=== PATIENT | female | born 1975 | race Caucasian/White ===

== ENCOUNTER 2018-01-23 20:34 | Emergency (ER) | payer OTHER, SELFPAY ==
[2018-01-23] MEDS ORDERED: DEXAMETHASONE 10 MG/ML VIAL ONE (20:55)
[2018-01-23] MEDS ORDERED: DIPHENHYDRAMINE 25 MG TAB/CAP ONE (20:56)
[2018-01-23] MEDS ORDERED: EPINEPHRINE/PF 1 MG/ML AMP ONE (20:56)
--- NOTE | 2018-01-23 22:07 | ER ---
Nurse's Notes [facility] Name: Yolie Hu Age: 42 yrs Sex: Female : 1975 Arrival Date: 01/23/2018 Time: 20:38 Bed 5 Private MD: Mohit Wheatley Diagnosis: Acute Allergic Reaction Presentation: 01/23 20:43 Presenting complaint: Patient states: I've been having an allergic reaction to tl2 something since Saturday. I've been itching all over. I got a steroid shot on Saturday and it improved but came back the next day. I saw Dr. Holcomb and he was going to order tests to see if I'm allergic to one of my medications but I haven't had that done yet. Today I'm itching again and I feel like I have a lump in my throat and it's hard to breathe. Transition of care: patient was not received from another setting of care. Onset: The symptoms/episode began/occurred 4 day(s) ago. Anaphylaxis evaluation, no signs or symptoms of anaphylaxis were noted. Onset of symptoms was January 19, 2018. Risk Assessment: Do you want to hurt yourself or someone else? Patient reports no desire to harm self or others. Initial Sepsis Screen: Does the patient meet any 2 criteria? No. Patient's initial sepsis screen is negative. Does the patient have a suspected source of infection? No. Patient's initial sepsis screen is negative. Care prior to arrival: None. 20:43 Method Of Arrival: Ambulatory tl2 20:43 Acuity: CANDIDA 3 tl2 Triage Assessment: 20:45 General: Appears in no apparent distress. uncomfortable, Behavior is cooperative, tl2 appropriate for age, anxious. Pain: Denies pain. Respiratory: Airway is patent Respiratory effort is even, unlabored, Respiratory pattern is regular, symmetrical. Derm: Rash noted that is itchy, urticaria, on face. LMSW: 22:16 LMP N/A - Irregular menses jd3 Historical: - Allergies: 20:45 Iodine; tl2 20:45 Nitrofurantoin; tl2 - Home Meds: 20:45 Dexilant 60 mg Oral CpDB 1 cap once daily [Active]; Keppra 1500mg Oral tab 1 tab 2 tl2 times per day [Active]; Topamax 200 mg Oral tab 2 times per day [Active]; Xanax 0.5 mg Oral tab 1 tab as needed [Active]; - PMHx: 20:45 GERD; insomnia; Seizures; tl2 - PSHx: 20:45 Cholecystectomy; ; tl2 - Immunization history:: Adult Immunizations up to date. - Social history:: Smoking status: Patient/guardian denies using tobacco. - Ebola Screening: : No symptoms or risks identified at this time. - Family history:: not pertinent. - Hospitalizations: : No recent hospitalization is reported. Screenin:46 Abuse screen: Denies threats or abuse. Nutritional screening: No deficits noted. jd3 Tuberculosis screening: No symptoms or risk factors identified. Fall Risk Ambulatory Aid- None/Bed Rest/Nurse Assist (0 pts). Gait- Normal/Bed Rest/Wheelchair (0 pts) Mental Status- Oriented to own ability (0 pts). Total Metz Fall Scale indicates No Risk (0-24 pts). Assessment: 20:44 General: Appears uncomfortable, Behavior is cooperative, anxious. Pain: Denies pain. jd3 Neuro: Level of Consciousness is awake, alert, obeys commands, Oriented to person, place, time, situation. Cardiovascular: Heart tones S1 S2 present Capillary refill < 3 seconds Patient's skin is warm and dry. Respiratory: Reports shortness of breath pt states, "it feels like my there is something stuck in my throat." Airway is patent Respiratory effort is even, unlabored, Respiratory pattern is regular, symmetrical, GI: Abdomen is round Bowel sounds present X 4 quads. Abd is soft and non tender X 4 quads. : No signs and/or symptoms were reported regarding the genitourinary system. EENT: No signs and/or symptoms were reported regarding the EENT system. Derm: Skin is intact, Skin is dry, Skin is normal, Skin temperature is warm Rash noted that is itchy, red. Musculoskeletal: Circulation, motion, and sensation intact. Range of motion: intact in all extremities. 22:17 Reassessment: Patient appears in no apparent distress at this time. Patient and/or jd3 family updated on plan of care and expected duration. Pain level reassessed. Patient is alert, oriented x 3, equal unlabored respirations, skin warm/dry/pink. pt reported understanding of discharge instructions, even and steady gait upon discharge. Patient states feeling better. Vital Signs: 20:45 BP 113 / 64; Pulse 95; Resp 22; Temp 98.6(O); Pulse Ox 97% on R/A; Weight 74.84 kg; tl2 Height 5 ft. 5 in. (165.10 cm); Pain 0/10; 21:08 BP 92 / 66; Pulse 76; Resp 18; Pulse Ox 99% on R/A; mt 21:49 BP 91 / 58; Pulse 76; Resp 20; Pulse Ox 98% on R/A; mt 20:45 Body Mass Index 27.46 (74.84 kg, 165.10 cm) tl2 ED Course: 20:38 Patient arrived in ED. ds1 20:38 Mohit Wheatley MD is Private Physician. ds1 20:40 Luis M Bowden MD is Attending Physician. pa 20:44 Moe Barragan RN is Primary Nurse. jd3 20:45 Triage completed. tl2 20:46 Patient has correct armband on for positive identification. Bed in low position. Call jd3 light in reach. Side rails up X 1. 20:46 Arm band placed on. jd3 22:16 No provider procedures requiring assistance completed. Patient did not have IV access jd3 during this emergency room visit. Administered Medications: 21:02 Drug: Decadron 10 mg Route: IM; Site: right deltoid; jd3 22:18 Follow up: Response: No adverse reaction jd3 21:02 Drug: EPINEPHrine 1mg/mL 1:1,000 0.3 ml Route: Sub-Q; Site: abdomen; jd3 22:18 Follow up: Response: No adverse reaction jd3 21:02 Drug: Benadryl 25 mg Route: PO; jd3 22:18 Follow up: Response: No adverse reaction jd3 Outcome: 22:06 Discharge ordered by . wa 22:16 Discharged to home ambulatory. jd3 22:16 Condition: stable 22:16 Discharge instructions given to patient, Instructed on discharge instructions, follow up and referral plans. medication usage, Demonstrated understanding of instructions, follow-up care, medications, Prescriptions given X 1. 22:19 Patient left the ED. jd3 Signatures: Tonya Dominguez ds1 Samia Flannery RN RN tl2 Alexandra Malave ri Luis M Bowden MD MD wa Davies, Jonathon, RN RN jd3
--- NOTE | 2018-01-23 22:07 | EDPHYS ---
Physician Documentation [facility] Name: Yolie Hu Age: 42 yrs Sex: Female : 1975 Arrival Date: 01/23/2018 Time: 20:38 Bed 5 Private MD: Mohit Wheatley ED Physician Luis M Bowden HPI: 01/23 22:38 This 42 yrs old Female presents to ER via Ambulatory with complaints of wa Allergic Reaction, Breathing Difficulty. 22:38 The patient presents with itching, rash, that is diffuse, sensation of swelling in wa throat. Onset: The symptoms/episode began/occurred 4 day(s) ago. Associated signs and symptoms: Pertinent positives: hives, rash, Pertinent negatives: headache, Light headed swelling, Syncope vomiting. Possible causes: new cat in the home otherwise unsure of new insult. At home the patient or guardian has treated the symptoms with Benadryl, steroids. Severity of symptoms: At their worst the symptoms were moderate in the emergency department the symptoms are worse. h/o allergy to multiple insults. The patient has not recently seen a physician. 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 - Social history:: Smoking status: Patient/guardian denies using tobacco. - Ebola Screening: : No symptoms or risks identified at this time. - Family history:: not pertinent. - Hospitalizations: : No recent hospitalization is reported. ROS: 22:40 Constitutional: Negative for fever, chills, and weight loss, Eyes: Negative for injury, wa pain, redness, and discharge, ENT: Negative for injury, pain, and discharge, Neck: Negative for injury, pain, and swelling, Cardiovascular: Negative for chest pain, palpitations, and edema, Respiratory: Negative for shortness of breath, cough, wheezing, and pleuritic chest pain, Abdomen/GI: Negative for abdominal pain, nausea, vomiting, diarrhea, and constipation, Back: Negative for injury and pain, : Negative for injury, bleeding, discharge, and swelling, MS/Extremity: Negative for injury and deformity, Neuro: Negative for headache, weakness, numbness, tingling, and seizure. 22:40 Skin: Positive for rash, diffusely. 22:40 All other systems are negative. Exam: 22:41 Constitutional: This is a well developed, well nourished patient who is awake, alert, wa and in no acute distress. Head/Face: Normocephalic, atraumatic. Eyes: Pupils equal round and reactive to light, extra-ocular motions intact. Lids and lashes normal. Conjunctiva and sclera are non-icteric and not injected. Cornea within normal limits. Periorbital areas with no swelling, redness, or edema. ENT: Nares patent. No nasal discharge, no septal abnormalities noted. Tympanic membranes are normal and external auditory canals are clear. Oropharynx with no redness, swelling, or masses, exudates, or evidence of obstruction, uvula midline. Mucous membranes moist. Neck: Trachea midline, no thyromegaly or masses palpated, and no cervical lymphadenopathy. Supple, full range of motion without nuchal rigidity, or vertebral point tenderness. No Meningismus. Chest/axilla: Normal chest wall appearance and motion. Nontender with no deformity. No lesions are appreciated. Cardiovascular: Regular rate and rhythm with a normal S1 and S2. No gallops, murmurs, or rubs. Normal PMI, no JVD. No pulse deficits. Abdomen/GI: Soft, non-tender, with normal bowel sounds. No distension or tympany. No guarding or rebound. No evidence of tenderness throughout. Back: No spinal tenderness. No costovertebral tenderness. Full range of motion. MS/ Extremity: Pulses equal, no cyanosis. Neurovascular intact. Full, normal range of motion. Neuro: Awake and alert, GCS 15, oriented to person, place, time, and situation. Cranial nerves II-XII grossly intact. Motor strength 5/5 in all extremities. Sensory grossly intact. Cerebellar exam normal. Normal gait. Psych: Awake, alert, with orientation to person, place and time. Behavior, mood, and affect are within normal limits. 22:41 Respiratory: the patient does not display signs of respiratory distress, Respirations: normal, Breath sounds: are clear throughout, Respiratory rate: normal 22:41 Skin: and is diffusely located. Vital Signs: 20:45 BP 113 / 64; Pulse 95; Resp 22; Temp 98.6(O); Pulse Ox 97% on R/A; Weight 74.84 kg; tl2 Height 5 ft. 5 in. (165.10 cm); Pain 0/10; 21:08 BP 92 / 66; Pulse 76; Resp 18; Pulse Ox 99% on R/A; mt 21:49 BP 91 / 58; Pulse 76; Resp 20; Pulse Ox 98% on R/A; mt 20:45 Body Mass Index 27.46 (74.84 kg, 165.10 cm) tl2 MDM: 20:40 Patient medically screened. me 22:42 Differential diagnosis: anaphylaxis, angioedema, urticaria. Data reviewed: vital signs, me nurses notes. Response to treatment: the patient's symptoms have markedly improved after treatment. Administered Medications: 21:02 Drug: Decadron 10 mg Route: IM; Site: right deltoid; jd3 22:18 Follow up: Response: No adverse reaction jd3 21:02 Drug: EPINEPHrine 1mg/mL 1:1,000 0.3 ml Route: Sub-Q; Site: abdomen; jd3 22:18 Follow up: Response: No adverse reaction jd3 21:02 Drug: Benadryl 25 mg Route: PO; jd3 22:18 Follow up: Response: No adverse reaction jd3 Disposition: 01/23/18 22:06 Discharged to Home. Impression: Acute Allergic Reaction. - Condition is Stable. - Discharge Instructions: Allergies, [id number]. - Prescriptions for Prednisone 20 mg Oral Tablet - take 2 tablet by ORAL route once daily for 5 days; 10 tablet. EpiPen 0.3 mg Injection auto- injector - inject 1 pen by INTRAMUSCULAR route one time Inject into the outer portion of the thigh, through clothing if necessary. Indicated in the emergency treatment of allergic reactions; 1 box. - Medication Reconciliation Form, Thank You Letter, Antibiotic Education, Prescription Opioid Use, Work release form form. - Follow up: Private Physician; When: 48 Hours; Reason: Re-evaluation by your physician. - Problem is new. - Symptoms have improved. - Notes: take the medication as prescribed. you may take benadryl for itching. Move the cat out of [facility] home for a while to see if that may be the source of your allergy. Signatures: Samia Flannery RN RN tl2 Luis M Bowden MD MD wa Davies, Jonathon, RN RN jd3 Corrections: (The following items were deleted from the chart) 22:19 22:06 01/23/2018 22:06 Discharged to Home. Impression: Acute Allergic Reaction. jd3 Condition is Stable. Forms are Medication Reconciliation Form, Thank You Letter, Antibiotic Education, Prescription Opioid Use. Follow up: Private Physician; When: 48 Hours; Reason: Re-evaluation by your physician. Problem is new. Symptoms have improved. wa
== END 2018-01-23 22:19 | disposition home or self-care (01) ==
LOC: ER 20:34
DX: T78.40XA Allergy, unspecified, initial encounter (principal); X58.XXXA Exposure to other specified factors, initial encounter; K21.9 Gastro-esophageal reflux disease without esophagitis; G40.909 Epilepsy, unspecified, not intractable, without status epilepticus
CPT/HCPCS: 96372; 99283; J0171; J1100

== ENCOUNTER 2019-01-20 05:53 | Emergency (ER) | payer SELFPAY ==
[2019-01-20] MEDS ORDERED: KETOROLAC 30 MG/ML INJ ONE (06:44)
[2019-01-20 06:48] LABS: Absolute Lymphocytes (CBC) 1.2 K/uL (0.7-4.9); Basophils % 0.3 % (0-1.3); Eosinophils % 0.1 % (0-4.4); Lymphocytes % 8.6 % (15.3-44.8); MPV 9.2 fL (7.6-11.3); Monocytes % 4.6 % (3.3-12.3); RBC Red Blood Cell Count 3.87 M/uL (3.86-4.86)
[2019-01-20 06:49] LABS: Protime INR 0.94
[2019-01-20 07:15] LABS: Urine White Blood Cell Casts OK
[2019-01-20] MEDS ORDERED: FENTANYL CITR 100 MCG/2 ML ONE ×2 (07:15→09:12)
[2019-01-20 07:16] LABS: ALT/SGPT 40 U/L (12-78); AST/SGOT 17 U/L (15-37); Albumin 3.8 g/dL (3.4-5.0); Alkaline Phosphatase 91 U/L (45-117); BUN Blood Urea Nitrogen 11 mg/dL (7-18); Bicarbonate 19 mmol/L (21-32); Bilirubin Direct 0.1 mg/dL (0-0.2); Bilirubin Total 0.2 mg/dL (0.2-1.0); Blood Morphology Comment NOT SEEN (NOT SEEN); Glucose Level 111 mg/dL (74-106); Magnesium 2.1 mg/dL (1.8-2.4); NT PRO-BNP 120 pg/mL (<125); Platelet Estimate ADEQ; Protein, Total 6.9 g/dL (6.4-8.2); Sodium Level 141 mmol/L (136-145); Troponin (Emerg Dept Use Only) 0.04 ng/mL (0.0-0.045)
[2019-01-20 07:18] LABS: Potassium 2.8 mmol/L (3.5-5.1)
[2019-01-20] MEDS ORDERED: PROMETHAZINE 25 MG/ML VIAL ONE ×2 (07:24→09:11)
[2019-01-20] MEDS ORDERED: NS KCL 20MEQ 1,000 ML IV ONE (07:38)
--- NOTE | 2019-01-20 08:04 | RAD REPORT ---
EXAM DESCRIPTION: RAD - Chest Single View - 01/20/2019 6:40 am CLINICAL HISTORY: Shortness of breath, left-sided back pain, asthma history COMPARISON: November 2016 TECHNIQUE: AP portable chest image was obtained 0636 hours . FINDINGS: Lung volumes are reduced particularly on the left. No focal lung parenchymal process on th e right. Stranding is present in the left lung base. Given the low lung volumes, this is most likely atelectasis. Minimal left base infiltrate not excluded. Heart and vasculature are normal. No measurable pleural effusion and no pneumothorax. No acute bony abnormality seen. No acute aortic findings suspected. IMPRESSION: Early pneumonia versus atelectasis left lung base.
[2019-01-20] MEDS ORDERED: CEFTRIAXONE/SWI 1gm 1 GM/10 ML SYR ONE (08:58)
[2019-01-20] MEDS ORDERED: AZITHROMYCIN IV 500 MG in NA CHLORIDE 0.9% 250 ML IVPB ONE (09:00)
[2019-01-20] MEDS ORDERED: ONDANSETRON 4 MG/2 ML VIAL ONE (09:23)
--- NOTE | 2019-01-20 10:40 | ER ---
Nurse's Notes [facility] Name: Yolie Hu Age: 43 yrs Sex: Female : 1975 Arrival Date: 01/20/2019 Time: 05:55 Bed 13 Private MD: Diagnosis: Pleurisy;Pneumonia due to other specified bacteria Presentation: 01/20 06:21 Presenting complaint: Patient states: Shortness of breath related to pain on breathing; lp1 States sudden onset at 2300 tonight radiating to left side of upper back; States seen at [facility] with no relief; States "I feel like I'm going to pass out". Transition of care: patient was not received from another setting of care. Onset of symptoms was January 19, 2019 at 23:00. Risk Assessment: Do you want to hurt yourself or someone else? Patient reports no desire to harm self or others. Initial Sepsis Screen:. Care prior to arrival: None. 06:21 Method Of Arrival: Wheelchair lp1 06:21 Acuity: CANDIDA 3 lp1 06:30 Initial Sepsis Screen: Does the patient meet any 2 criteria? RR > 20 per min. HR > 90 lp1 bpm. Does the patient have a suspected source of infection? Yes: Other: unknown If YES to both, name of provider notified: Rey GRECO. ONLINE MARKETER: 06:23 LMP 01/06/2019 lp1 Historical: - Allergies: 06:26 Iodine; lp1 06:26 Nitrofurantoin; lp1 - Home Meds: 06:26 Dexilant 60 mg Oral CpDB 1 cap once daily [Active]; Keppra 1500mg Oral tab 1 tab 2 lp1 times per day [Active]; Topamax 200 mg Oral tab 2 times per day [Active]; Klonopin Oral [Active]; Albuterol Inhl [Active]; - PMHx: 06:26 "gallbladder issue"; GERD; insomnia; Seizures; Asthma; lp1 - PSHx: 06:26 ; breast augmentation; Cholecystectomy; gastric sleeve; uterine ablasion; lp1 - Immunization history:: Adult Immunizations up to date. - Social history:: Smoking status: Patient uses tobacco products, smokes one pack cigarettes per day. - Ebola Screening: : No symptoms or risks identified at this time. Screenin:47 Abuse screen: Denies threats or abuse. Denies injuries from another. Nutritional lp1 screening: No deficits noted. Tuberculosis screening: No symptoms or risk factors identified. Fall Risk None identified. Assessment: 06:44 General: Appears uncomfortable, Behavior is anxious, restless. Pain: Complains of pain lp1 in left scapular area, left subscapular area, left mid back and chest Pain currently is 10 out of 10 on a pain scale. Quality of pain is described as sharp, shooting, Pain began suddenly, Is continuous, Noted to be crying, grimacing, restless. Neuro: Level of Consciousness is awake, alert, obeys commands, Oriented to person, place, time, situation. Cardiovascular: Patient's skin is warm and dry. Respiratory: Reports pain with movement pain with respiration Airway is patent Respiratory effort is even, Respiratory pattern is hyperventilation Breath sounds are clear bilaterally. the patient has moderate shortness of breath. GI: No signs and/or symptoms were reported involving the gastrointestinal system. : No signs and/or symptoms were reported regarding the genitourinary system. EENT: No signs and/or symptoms were reported regarding the EENT system. Derm: Skin is intact, Skin is dry, Skin is normal. Musculoskeletal: Circulation, motion, and sensation intact. 07:11 General: Appears in no apparent distress. uncomfortable, Behavior is calm, cooperative, hj appropriate for age. Pain: Complains of pain in chest Pain radiates to left mid back and left subscapular area and left scapular area Pain currently is 8 out of 10 on a pain scale. Quality of pain is described as sharp, shooting. Neuro: Level of Consciousness is awake, alert, obeys commands, Oriented to person, place, time, situation, Appropriate for age. Cardiovascular: Capillary refill < 3 seconds Patient's skin is warm and dry. Rhythm is sinus tachycardia. Respiratory: Reports pain with movement pain with respiration Airway is patent Respiratory effort is even, unlabored, Respiratory pattern is regular, symmetrical, Breath sounds are clear. GI: No signs and/or symptoms were reported involving the gastrointestinal system. : No signs and/or symptoms were reported regarding the genitourinary system. EENT: No signs and/or symptoms were reported regarding the EENT system. Derm: No signs and/or symptoms reported regarding the dermatologic system. Musculoskeletal: No signs and/or symptoms reported regarding the musculoskeletal system. 08:30 Reassessment: Patient and/or family updated on plan of care and expected duration. Pain hj level reassessed. Patient is alert, oriented x 3, equal unlabored respirations, skin warm/dry/pink. reports N/V; notified, medicated;. 09:21 Reassessment: okay to take regular meds from home except controlled substance;. hj 10:54 Reassessment: Patient appears in no apparent distress at this time. No changes from la1 previously documented assessment. Patient and/or family updated on plan of care and expected duration. Pain level reassessed. Patient is alert, oriented x 3, equal unlabored respirations, skin warm/dry/pink. Vital Signs: 06:23 BP 119 / 65; Pulse 115; Resp 22; Temp 98.2(O); Pulse Ox 100% on R/A; Weight 48.08 kg; lp1 Height 5 ft. 0 in. (152.40 cm); Pain 10/10; 07:11 BP 94 / 60; Pulse 100; Resp 22; Pulse Ox 99% on R/A; Pain 8/10; hj 07:53 BP 100 / 56; Pulse 90; Resp 20; Pulse Ox 98% on R/A; hj 08:30 BP 95 / 76; Pulse 91; Resp 18; Pulse Ox 100% on R/A; hj 09:11 BP 92 / 55; Pulse 102; Resp 20; Pulse Ox 99% on R/A; hj 10:55 BP 102 / 74; Pulse 98; Resp 16; Pulse Ox 98% on R/A; la1 06:23 Body Mass Index 20.70 (48.08 kg, 152.40 cm) lp1 ED Course: 05:55 Patient arrived in ED. ds1 06:05 Rey Burr PA is PHCP. jr8 06:05 Shay Jay MD is Attending Physician. jr8 06:21 Candida Fisher, FABIOLA is Primary Nurse. lp1 06:23 Triage completed. lp1 06:24 Arm band placed on left wrist. lp1 06:30 Patient has correct armband on for positive identification. Placed in gown. Bed in low lp1 position. library technology instructor on. Pulse ox on. NIBP on. 06:35 Inserted saline lock: 22 gauge in left antecubital area, using aseptic technique. Blood lp1 collected. 06:39 X-ray completed. Portable x-ray completed in exam room. Patient tolerated procedure kw well. 06:40 XRAY Chest (1 view) In Process Unspecified. EDMS 09:35 Inserted saline lock: 22 gauge in left antecubital area, using aseptic technique. hj 10:55 No provider procedures requiring assistance completed. IV discontinued, intact, la1 bleeding controlled, No redness/swelling at site. Pressure dressing applied. Administered Medications: 06:35 Drug: TORadol - Ketorolac 15 mg Route: IVP; Site: right antecubital; lp1 06:57 Follow up: Response: Pain is unchanged, physician notified lp1 07:16 Drug: fentaNYL (PF) 50 mcg Route: IVP; Site: right antecubital; lp1 07:20 Follow up: Response: No adverse reaction hj 07:16 Drug: Phenergan 6.25 mg Route: IVP; Site: right antecubital; lp1 07:20 Follow up: Response: No adverse reaction; Nausea is decreased hj 07:20 Drug: NS 0.9% with KCl 20 mEq/L 1000 ml Route: IV; Rate: 500 ml/hr; Site: right hj antecubital; 10:57 Follow up: IV Status: Completed infusion la1 08:40 Drug: Rocephin 1 grams Route: IV; Rate: calculated rate; Site: right antecubital; hj 10:57 Follow up: IV Status: Completed infusion la1 08:56 Drug: fentaNYL (PF) 50 mcg Route: IVP; Site: right antecubital; hj 10:55 Follow up: Response: No adverse reaction; Pain is decreased la1 08:56 Drug: Phenergan 12.5 mg Route: IVP; Site: right antecubital; hj 09:10 Follow up: Response: No adverse reaction; Adverse reaction, Physician notified; Nausea hj is increased 09:10 Follow up: Response: No adverse reaction hj 09:20 Drug: Zithromax 500 mg Route: IVPB; Infused Over: 1 hrs; Site: right antecubital; hj 10:58 Follow up: IV Status: Completed infusion la1 09:20 Drug: Zofran 4 mg Route: IVP; Site: right antecubital; hj 10:56 Follow up: Response: No adverse reaction la1 Outcome: 10:39 Discharge ordered by . jessica 10:56 Discharged to home ambulatory. la1 10:56 Condition: stable 10:56 Discharge instructions given to patient, Instructed on discharge instructions, follow up and referral plans. medication usage, Demonstrated understanding of instructions, follow-up care, medications, Prescriptions given X 3. 10:57 Patient left the ED. la1 Signatures: Dispatcher [employer] Tonya Dominguez Lacy Braden Laura, RN RN lp1 Rey Burr PA PA jr8 Attema, Lee, RN RN Jeet Vargas RN RN Corrections: (The following items were deleted from the chart) 06:53 06:44 Respiratory: Reports pain with movement pain with respiration Airway is patent lp1 Respiratory effort is even, Respiratory pattern is hyperventilation Breath sounds are clear bilaterally. lp1
--- NOTE | 2019-01-20 10:40 | EDPHYS ---
Physician Documentation [facility] Name: Yolie Hu Age: 43 yrs Sex: Female : 1975 Arrival Date: 01/20/2019 Time: 05:55 Bed 13 Private MD: ED Physician Shay Jay HPI: 01/20 07:08 This 43 yrs old Female presents to ER via Wheelchair with complaints of jr8 Shortness Of Breath, L Side Pain. 07:08 The patient has shortness of breath at rest. Onset: The symptoms/episode began/occurred jr8 acutely. Duration: The symptoms are continuous. The patient's shortness of breath is aggravated by nothing, is alleviated by nothing. Associated signs and symptoms: Pertinent positives: chest pain. Severity of symptoms: At their worst the symptoms were moderate in the emergency department the symptoms are unchanged. The patient has experienced a previous episode. The patient has not recently seen a physician. Patient stated that she started to have chest pain last night around 11 pm with shortness of breath. Consistent and without relief. Denies trauma or other symptoms. Has had this once before but could not remember what was wrong . 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 - Social history:: Smoking status: Patient uses tobacco products, smokes one pack cigarettes per day. - Ebola Screening: : No symptoms or risks identified at this time. ROS: 07:08 Eyes: Negative for injury, pain, redness, and discharge, ENT: Negative for injury, jr8 pain, and discharge, Neck: Negative for injury, pain, and swelling, Abdomen/GI: Negative for abdominal pain, nausea, vomiting, diarrhea, and constipation, Back: Negative for injury and pain, MS/Extremity: Negative for injury and deformity, Skin: Negative for injury, rash, and discoloration, Neuro: Negative for headache, weakness, numbness, tingling, and seizure. 07:08 Cardiovascular: Positive for chest pain, Negative for edema, orthopnea, palpitations, paroxysmal nocturnal dyspnea. 07:08 Respiratory: Positive for shortness of breath. Exam: 07:08 Eyes: Pupils equal round and reactive to light, extra-ocular motions intact. Lids and jr8 lashes normal. Conjunctiva and sclera are non-icteric and not injected. Cornea within normal limits. Periorbital areas with no swelling, redness, or edema. ENT: Nares patent. No nasal discharge, no septal abnormalities noted. Tympanic membranes are normal and external auditory canals are clear. Oropharynx with no redness, swelling, or masses, exudates, or evidence of obstruction, uvula midline. Mucous membranes moist. Neck: Trachea midline, no thyromegaly or masses palpated, and no cervical lymphadenopathy. Supple, full range of motion without nuchal rigidity, or vertebral point tenderness. No Meningismus. Chest/axilla: Normal chest wall appearance and motion. Nontender with no deformity. No lesions are appreciated. Abdomen/GI: Soft, non-tender, with normal bowel sounds. No distension or tympany. No guarding or rebound. No evidence of tenderness throughout. Back: No spinal tenderness. No costovertebral tenderness. Full range of motion. Skin: Warm, dry with normal turgor. Normal color with no rashes, no lesions, and no evidence of cellulitis. MS/ Extremity: Pulses equal, no cyanosis. Neurovascular intact. Full, normal range of motion. Neuro: Awake and alert, GCS 15, oriented to person, place, time, and situation. Cranial nerves II-XII grossly intact. Motor strength 5/5 in all extremities. Sensory grossly intact. Cerebellar exam normal. Normal gait. 07:08 Cardiovascular: Rate: tachycardic, Rhythm: regular, Pulses: Pulses are 2+ in right radial artery and left radial artery. Heart sounds: normal, Edema: is not appreciated, JVD: is not appreciated. 07:08 Respiratory: the patient does not display signs of respiratory distress, Respirations: normal, symetrical, no use of accessory muscles, no grunting, no evidence of nasal flaring, no prolonged exhalations, no pursed lip breathing, no retractions, no shallow respirations, no splinting, no tachypnea, Breath sounds: are clear throughout, no bronchial sounds, no decreased breath sounds, no rales, rhonchi, no stridor, no wheezing. Vital Signs: 06:23 BP 119 / 65; Pulse 115; Resp 22; Temp 98.2(O); Pulse Ox 100% on R/A; Weight 48.08 kg; lp1 Height 5 ft. 0 in. (152.40 cm); Pain 10/10; 07:11 BP 94 / 60; Pulse 100; Resp 22; Pulse Ox 99% on R/A; Pain 8/10; hj 07:53 BP 100 / 56; Pulse 90; Resp 20; Pulse Ox 98% on R/A; hj 08:30 BP 95 / 76; Pulse 91; Resp 18; Pulse Ox 100% on R/A; hj 09:11 BP 92 / 55; Pulse 102; Resp 20; Pulse Ox 99% on R/A; hj 10:55 BP 102 / 74; Pulse 98; Resp 16; Pulse Ox 98% on R/A; la1 06:23 Body Mass Index 20.70 (48.08 kg, 152.40 cm) lp1 MDM: 06:06 Patient medically screened. jr8 08:59 Data reviewed: vital signs, nurses notes, lab test result(s), EKG, radiologic studies, jr8 plain films, and as a result, I will discharge patient. Data interpreted: Pulse oximetry: on room air is 98 %. Interpretation: normal. Counseling: I had a detailed discussion with the patient and/or guardian regarding: the historical points, exam findings, and any diagnostic results supporting the discharge/admit diagnosis, lab results, radiology results, the need for outpatient follow up, a family practitioner, to return to the emergency department if symptoms worsen or persist or if there are any questions or concerns that arise at home. ED course: Patient has left sided pleuritic chest pain with developing left pneumonia and elevated WBC count which correlates with an early developing pneumonia. DD negative. Other causes for chest pain less likely. Otherwise hemodynamically stable. Patient at this time appropriate to be discharge with close return precautions if she were to feel worse or condition worsens . 01/20 06:18 Order name: Basic Metabolic Panel; Complete Time: 07:19 01/20 06:18 Order name: CBC with Diff; Complete Time: 07:19 01/20 06:18 Order name: LFT's; Complete Time: 07:19 01/20 06:18 Order name: Magnesium; Complete Time: 07:19 01/20 06:18 Order name: NT PRO-BNP; Complete Time: 07:19 01/20 06:18 Order name: PT-INR; Complete Time: 06:58 01/20 06:18 Order name: Troponin (emerg Dept Use Only); Complete Time: 07:19 01/20 06:18 Order name: XRAY Chest (1 view); Complete Time: 08:39 01/20 06:51 Order name: CBC Smear Scan; Complete Time: 07:19 EDMS 01/20 06:57 Order name: DD; Complete Time: 07:19 lp1 01/20 06:18 Order name: EKG; Complete Time: 06:20 01/20 06:18 Order name: Cardiac monitoring; Complete Time: 06:39 01/20 06:18 Order name: EKG - Nurse/Tech; Complete Time: 06:18 01/20 06:18 Order name: IV Saline Lock; Complete Time: 06:39 01/20 06:18 Order name: Labs collected and sent; Complete Time: 06:39 01/20 06:18 Order name: O2 Per Protocol; Complete Time: 06:39 01/20 06:18 Order name: O2 Sat Monitoring; Complete Time: 06:39 01/20 09:06 Order name: EKG - Nurse/Tech; Complete Time: 09:10 01/20 09:06 Order name: EKG; Complete Time: 09:06 jr Administered Medications: 06:35 Drug: TORadol - Ketorolac 15 mg Route: IVP; Site: right antecubital; lp1 06:57 Follow up: Response: Pain is unchanged, physician notified lp1 07:16 Drug: fentaNYL (PF) 50 mcg Route: IVP; Site: right antecubital; lp1 07:20 Follow up: Response: No adverse reaction hj 07:16 Drug: Phenergan 6.25 mg Route: IVP; Site: right antecubital; lp1 07:20 Follow up: Response: No adverse reaction; Nausea is decreased hj 07:20 Drug: NS 0.9% with KCl 20 mEq/L 1000 ml Route: IV; Rate: 500 ml/hr; Site: right hj antecubital; 10:57 Follow up: IV Status: Completed infusion la1 08:40 Drug: Rocephin 1 grams Route: IV; Rate: calculated rate; Site: right antecubital; hj 10:57 Follow up: IV Status: Completed infusion la1 08:56 Drug: fentaNYL (PF) 50 mcg Route: IVP; Site: right antecubital; hj 10:55 Follow up: Response: No adverse reaction; Pain is decreased la1 08:56 Drug: Phenergan 12.5 mg Route: IVP; Site: right antecubital; hj 09:10 Follow up: Response: No adverse reaction; Adverse reaction, Physician notified; Nausea hj is increased 09:10 Follow up: Response: No adverse reaction hj 09:20 Drug: Zithromax 500 mg Route: IVPB; Infused Over: 1 hrs; Site: right antecubital; hj 10:58 Follow up: IV Status: Completed infusion la1 09:20 Drug: Zofran 4 mg Route: IVP; Site: right antecubital; hj 10:56 Follow up: Response: No adverse reaction la1 Disposition: 22:15 Co-signature as Attending Physician, Shay Jay MD Available for consultation at ps1 all times. . Disposition: 01/20/19 10:39 Discharged to Home. Impression: Pleurisy, Pneumonia due to other specified bacteria. - Condition is Stable. - Discharge Instructions: Pleurisy, Community-Acquired Pneumonia, Adult. - Prescriptions for Zithromax Z- Ambrocio 250 mg Oral Tablet - take 1 tablet by ORAL route as directed for 5 days Day 1 - take two (2) tablets one time. Day 2, 3, 4 , 5 take one (1) tablet once daily.; 6 tablet. Tylenol- Codeine #3 300-30 mg Oral Tablet - take 2 tablets by ORAL route every 6 hours As needed; 20 tablet. - Medication Reconciliation Form, Thank You Letter, Antibiotic Education, Prescription Opioid Use form. - Follow up: Private Physician; When: 2 - 3 days; Reason: Recheck today's complaints, Continuance of care, Re-evaluation by your physician. - Problem is new. - Symptoms have improved. Signatures: Dispatcher [employer] EDMS Candida Fisher, RN RN lp1 Rey Burr PA PA jr8 Minh Snyder RN RN la1 Jeet Gill RN RN hj Shay Jay MD MD ps1 Corrections: (The following items were deleted from the chart) 10:57 10:39 01/20/2019 10:39 Discharged to Home. Impression: Pleurisy; Pneumonia due to other la1 specified bacteria. Condition is Stable. Discharge Instructions: Pleurisy, Community-Acquired Pneumonia, Adult. Prescriptions for Ibuprofen 800 mg Oral Tablet - take 1 tablet by ORAL route every 12 hours As needed take with food; 20 tablet, Tramadol 50 mg Oral Tablet - take 1 tablet by ORAL route every 8 hours as needed; 12 tablet, Zithromax Z-Ambrocio 250 mg Oral Tablet - take 1 tablet by ORAL route as directed for 5 days Day 1 - take two (2) tablets one time. Day 2, 3, 4 , 5 take one (1) tablet once daily.; 6 tablet. and Forms are Medication Reconciliation Form, Thank You Letter, Antibiotic Education, Prescription Opioid Use. Follow up: Private Physician; When: 2 - 3 days; Reason: Recheck today's complaints, Continuance of care, Re-evaluation by your physician. Problem is new. Symptoms have improved. jr8
--- NOTE | 2019-01-20 11:07 | EKG ---
Test Date: 2019-01-20 Test Time: 09:12:29 Heading Matcher And Assembler: HIRAM MEASUREMENT RESULTS: Intervals: Rate: 93 TX: 158 QRSD: 82 QT: 372 QTc: 462 [place]: P: 61 TX: 158 QRS: 63 T: 48 INTERPRETIVE STATEMENTS: Normal sinus rhythm Normal ECG Compared to ECG 01/20/2019 06:07:01 Accelerated junctional rhythm no longer present ST (T wave) deviation no longer present Prolonged QT interval no longer present Electronically Signed On 01-20-19 11:07:08 CDT by Too Quintana
--- NOTE | 2019-01-20 11:08 | EKG ---
Test Date: 2019-01-20 Test Time: 06:07:01 Conference Planning Manager: SHENA MEASUREMENT RESULTS: Intervals: Rate: 102 CT: QRSD: 86 QT: 522 QTc: 680 [place]: P: CT: QRS: 42 T: 72 INTERPRETIVE STATEMENTS: Accelerated Junctional rhythm Nonspecific ST and T wave abnormality Prolonged QT Abnormal ECG Compared to ECG 11/28/2016 14:11:45 Accelerated junctional rhythm now present ST (T wave) deviation now present Prolonged QT interval now present Sinus rhythm no longer present Electronically Signed On 01-20-19 11:07:19 CDT by Too Quintana
== END 2019-01-20 10:57 | disposition home or self-care (01) ==
LOC: ER 05:53
DX: J15.8 Pneumonia due to other specified bacteria (principal); K21.9 Gastro-esophageal reflux disease without esophagitis; J45.909 Unspecified asthma, uncomplicated; F17.210 Nicotine dependence, cigarettes, uncomplicated; Z88.1 Allergy status to other antibiotic agents; Z88.8 Allergy status to other drugs, medicaments and biological substances
CPT/HCPCS: 36415; 71045; 80048; 80076; 83735; 83880; 84484; 85025; 85379; 85610; 93005; 96361; 96365; 96375; 99284; J0456; J0696; J2405; J2550; J3010

== ENCOUNTER 2019-10-26 21:08 | Emergency (ER) | payer SELFPAY ==
[2019-10-26 21:57] LABS: Urine Blood TRACE (NEG); Urine Glucose NEGATIVE (NEG); Urine Protein NEGATIVE (NEG); Urine Specific Gravity 1.025 (1.005-1.030)
[2019-10-26 22:08] LABS: Absolute Lymphocytes (CBC) 2.1 K/uL (0.7-4.9); Basophils % 0.9 % (0-1.3); Hematocrit 40.4 % (36.0-45.0); Lymphocytes % 43.5 % (15.3-44.8); MPV 9.6 fL (7.6-11.3); RBC Red Blood Cell Count 3.77 M/uL (3.86-4.86)
[2019-10-26 22:18] LABS: ALT/SGPT 26 U/L (12-78); AST/SGOT 41 U/L (15-37); Albumin 3.6 g/dL (3.4-5.0); Alkaline Phosphatase 104 U/L (45-117); BUN Blood Urea Nitrogen 12 mg/dL (7-18); Bicarbonate 23 mmol/L (21-32); Bilirubin Direct 0.1 mg/dL (0-0.2); Bilirubin Total 0.3 mg/dL (0.2-1.0); Glucose Level 107 mg/dL (74-106); Lipase 190 U/L (73-393); Potassium 3.4 mmol/L (3.5-5.1); Protein, Total 7.4 g/dL (6.4-8.2); Sodium Level 141 mmol/L (136-145)
[2019-10-26 22:41] LABS: Blood Morphology Comment NOTED (NOT SEEN); Macrocytosis 1+; Platelet Estimate ADEQ; Urine White Blood Cell Casts OK
--- NOTE | 2019-10-26 22:52 | ER ---
Nurse's Notes [facility] Name: Yolie Hu Age: 44 yrs Sex: Female : 1975 Arrival Date: 10/26/2019 Time: 21:11 Bed 17 Private MD: Diagnosis: Dehydration;Edema, unspecified Presentation: 10/25 21:21 Chief complaint: Patient states: Bilateral leg swelling for 2 days. Brown urine noticed ll1 also. Drinks alcohol daily. Coronavirus screen: Proceed with normal triage. Patient denies a cough. Patient denies shortness of breath or difficulty breathing. Patient denies measured and/or subjective temperature greater than 100.4F prior to today's visit. Patient denies travel on a cruise ship or to a country the [facility] currently lists as an affected area. Patient denies contact with known and/or suspected case of COVID-19. Ebola Screen: Patient denies travel to an Ebola-affected area in the 21 days before illness onset. Initial Sepsis Screen: Does the patient meet any 2 criteria? HR > 90 bpm. Risk Assessment: Do you want to hurt yourself or someone else? Patient reports no desire to harm self or others. Onset of symptoms was October 24, 2019. 21:21 Method Of Arrival: Ambulatory ll1 21:21 Acuity: CANDIDA 3 ll1 Historical: - Allergies: 21:24 Iodine; ll1 21:24 Nitrofurantoin; ll1 21:24 Banana; ll1 21:24 AVOCADO (LAURUS PERSEA); ll1 - PMHx: 21:24 "gallbladder issue"; insomnia; Seizures; GERD; Asthma; back problems; tummy tuck/breast ll1 augmentation; - PSHx: 21:24 Cholecystectomy; breast augmentation; gastric sleeve; uterine ablasion; ; ll1 - Immunization history:: Flu vaccine is not up to date. - Social history:: Smoking status: Patient reports the use of cigarette tobacco products, smokes two packs cigarettes per day. Patient uses alcohol, on a daily basis. street drugs, marijuana, Patient/guardian denies using IV drugs, Patient uses alcohol, Patient/guardian denies using caffeine. - Family history:: not pertinent. Screenin:30 Abuse screen: Denies threats or abuse. Nutritional screening: No deficits noted. jb4 Tuberculosis screening: No symptoms or risk factors identified. Fall Risk None identified. Assessment: 21:28 General: Appears in no apparent distress. comfortable, Behavior is calm, cooperative, jb4 appropriate for age. Pain: Complains of pain in left leg Pain does not radiate. Pain currently is 7 out of 10 on a pain scale. Pain began over a year ago. Neuro: Level of Consciousness is awake, alert, obeys commands, Oriented to person, place, time, situation. Cardiovascular: Patient's skin is warm and dry. Respiratory: Airway is patent Respiratory effort is even, unlabored, Respiratory pattern is regular, symmetrical. GI: No signs and/or symptoms were reported involving the gastrointestinal system. : No signs and/or symptoms were reported regarding the genitourinary system. EENT: No signs and/or symptoms were reported regarding the EENT system. Derm: Skin is intact, Skin is pink, warm \\T\\ dry. Musculoskeletal: Circulation, motion, and sensation intact. Range of motion: intact in all extremities, Swelling present in right leg and left leg. 22:39 Reassessment: Patient and/or family updated on plan of care and expected duration. Pain jb4 level reassessed. Pt is resting in bed with eyes closed, respirations are even and unlabored. No s/s of pain or distress noted. 22:51 Reassessment: Provider at the bedside explaining plan of care. suggested NS fluid jb4 bolus, Pt refused. 23:00 Reassessment: Patient appears in no apparent distress at this time. Patient and/or jb4 family updated on plan of care and expected duration. Pain level reassessed. Patient is alert, oriented x 3, equal unlabored respirations, skin warm/dry/pink. Pt verbalized understanding of d/c and follow up instructions. Ambulated out of ED with steady gait. Vital Signs: 21:21 BP 104 / 83; Pulse 109; Resp 19; Temp 98.7; Pulse Ox 98% ; ll1 22:39 BP 90 / 46; Pulse 90; Resp 16; Pulse Ox 97% on R/A; jb4 22:51 BP 99 / 50; Pulse 92; Resp 16; Pulse Ox 97% on R/A; jb4 ED Course: 21:11 Patient arrived in ED. cf2 21:19 Ml Cedeno MD is Attending Physician. ma2 21:23 Triage completed. ll1 21:25 Arm band placed on Patient placed in an exam room, on a stretcher. ll1 21:27 Dalton Garcia, RN is Primary Nurse. jb4 21:30 Patient has correct armband on for positive identification. Bed in low position. Call jb light in reach. Side rails up X 1. Pulse ox on. NIBP on. 21:40 Initial lab(s) drawn, by wv, sent to lab. Inserted saline lock: 20 gauge in right jb4 antecubital area, using aseptic technique. Blood collected. 22:04 Lipase Sent. jb4 22:04 Hepatic Function Sent. jb4 22:05 Creatinine for Radiology Sent. jb4 22:05 CBC with Diff Sent. jb4 22:05 Basic Metabolic Panel Sent. jb4 22:05 CK Sent. jb4 23:01 No provider procedures requiring assistance completed. IV discontinued, intact, jb4 bleeding controlled, No redness/swelling at site. Pressure dressing applied. Administered Medications: 22:53 Not Given (Patient Refused): NS 0.9% 1000 ml IV at 1 bolus Per protocol; 1000 mL bolus jb4 Outcome: 22:52 Discharge ordered by . ma2 23:01 Discharged to home ambulatory. jb4 23:01 Condition: stable 23:01 Discharge instructions given to patient, Instructed on discharge instructions, follow up and referral plans. Demonstrated understanding of instructions, follow-up care. 23:02 Patient left the ED. jb4 Signatures: Dalton Garcia, RN RN jb4 Ml Cedeno MD MD nd2 Jeromy Farris 2 Florence Quispe RN RN 1
--- NOTE | 2019-10-26 22:53 | EDPHYS ---
Physician Documentation [facility] Name: Yolie Hu Age: 44 yrs Sex: Female : 1975 Arrival Date: 10/26/2019 Time: 21:11 Bed 17 Private MD: ED Physician Ml Cedeno HPI: 10/25 22:45 This 44 yrs old Female presents to ER via Ambulatory with complaints of Leg ma2 Swelling, Brown colored Urine. 22:45 le edema x 2 weeks . Onset: The symptoms/episode began/occurred gradually, 2 week(s) ma2 ago. Severity of symptoms: At their worst the symptoms were very mild in the emergency department the symptoms are unchanged. The patient has not experienced similar symptoms in the past. Historical: - Allergies: 21:24 Iodine; ll1 21:24 Nitrofurantoin; ll1 21:24 Banana; ll1 21:24 AVOCADO (LAURUS PERSEA); ll1 - PMHx: 21:24 "gallbladder issue"; insomnia; Seizures; GERD; Asthma; back problems; tummy tuck/breast ll1 augmentation; - PSHx: 21:24 Cholecystectomy; breast augmentation; gastric sleeve; uterine ablasion; ; ll1 - Immunization history:: Flu vaccine is not up to date. - Social history:: Smoking status: Patient reports the use of cigarette tobacco products, smokes two packs cigarettes per day. Patient uses alcohol, on a daily basis. street drugs, marijuana, Patient/guardian denies using IV drugs, Patient uses alcohol, Patient/guardian denies using caffeine. - Family history:: not pertinent. ROS: 22:45 Constitutional: Negative for fever, chills, and weight loss. ma2 22:45 All other systems are negative. Exam: 22:45 Constitutional: This is a well developed, well nourished patient who is awake, alert, ma2 and in no acute distress. Head/Face: Normocephalic, atraumatic. Eyes: Pupils equal round and reactive to light, extra-ocular motions intact. Lids and lashes normal. Conjunctiva and sclera are non-icteric and not injected. Cornea within normal limits. Periorbital areas with no swelling, redness, or edema. ENT: Nares patent. No nasal discharge, no septal abnormalities noted. Tympanic membranes are normal and external auditory canals are clear. Oropharynx with no redness, swelling, or masses, exudates, or evidence of obstruction, uvula midline. Mucous membranes moist. Neck: Trachea midline, no thyromegaly or masses palpated, and no cervical lymphadenopathy. Supple, full range of motion without nuchal rigidity, or vertebral point tenderness. No Meningismus. Chest/axilla: Normal chest wall appearance and motion. Nontender with no deformity. No lesions are appreciated. Cardiovascular: Regular rate and rhythm with a normal S1 and S2. No gallops, murmurs, or rubs. Normal PMI, no JVD. No pulse deficits. Respiratory: Lungs have equal breath sounds bilaterally, clear to auscultation and percussion. No rales, rhonchi or wheezes noted. No increased work of breathing, no retractions or nasal flaring. Abdomen/GI: Soft, non-tender, with normal bowel sounds. No distension or tympany. No guarding or rebound. No evidence of tenderness throughout. Back: No spinal tenderness. No costovertebral tenderness. Full range of motion. Skin: Warm, dry with normal turgor. Normal color with no rashes, no lesions, and no evidence of cellulitis. MS/ Extremity: bilat LE edema pitting, equal bilat, Pulses equal, no cyanosis. Neurovascular intact. Full, normal range of motion. Neuro: Awake and alert, GCS 15, oriented to person, place, time, and situation. Cranial nerves II-XII grossly intact. Motor strength 5/5 in all extremities. Sensory grossly intact. Cerebellar exam normal. Normal gait. Psych: Awake, alert, with orientation to person, place and time. Behavior, mood, and affect are within normal limits. Vital Signs: 21:21 BP 104 / 83; Pulse 109; Resp 19; Temp 98.7; Pulse Ox 98% ; ll1 22:39 BP 90 / 46; Pulse 90; Resp 16; Pulse Ox 97% on R/A; jb4 22:51 BP 99 / 50; Pulse 92; Resp 16; Pulse Ox 97% on R/A; jb4 MDM: 21:19 Patient medically screened. ma2 22:45 Differential Diagnosis liver failure, vs blanca vs rhabdo. . Data reviewed: vital signs, ma2 nurses notes. Counseling: I had a detailed discussion with the patient and/or guardian regarding: the historical points, exam findings, and any diagnostic results supporting the discharge/admit diagnosis, the presence of at least one elevated blood pressure reading (>120/80) during this emergency department visit, the need for outpatient follow up. 22:51 ED course: patient refuse ivf ,she states her bp is usually and normaly 80/40 and her ma2 pulse is always high and she want to go home and drink fluids . 10/25 21:27 Order name: Basic Metabolic Panel; Complete Time: 22:41 ar2 10/25 21:27 Order name: CBC with Diff; Complete Time: 22:43 ar2 10/25 21:27 Order name: Creatinine for Radiology; Complete Time: 22:41 [facility] 10/25 21:27 Order name: Hepatic Function; Complete Time: 22:41 [facility] 10/25 21:27 Order name: Lipase; Complete Time: 22:41 [facility] 10/25 21:37 Order name: Urine Dipstick--Ancillary (enter results); Complete Time: 22:13 [facility] 10/25 21:27 Order name: IV Saline Lock; Complete Time: 21:50 ar2 10/25 21:27 Order name: Labs collected and sent; Complete Time: 21:50 [facility] 10/25 21:27 Order name: Urine Dipstick-Ancillary (obtain specimen); Complete Time: 21:50 [facility] 10/25 21:38 Order name: CK; Complete Time: 22:41 [facility] 10/25 22:14 Order name: CBC Smear Scan; Complete Time: 22:43 EDMS Administered Medications: 22:53 Not Given (Patient Refused): NS 0.9% 1000 ml IV at 1 bolus Per protocol; 1000 mL bolus jb4 Disposition: 10/26/19 22:52 Discharged to Home. Impression: Dehydration, Edema, unspecified. - Condition is Stable. - Discharge Instructions: Dehydration, Adult, Edema. - Medication Reconciliation Form, Thank You Letter, Antibiotic Education, Prescription Opioid Use form. - Follow up: Private Physician; When: Tomorrow; Reason: Continuance of care. Signatures: [facility] EDDalton Rivera RN RN jb4 Ml Cedeno MD MD ma2 Florence Quispe RN RN ll1 Corrections: (The following items were deleted from the chart) 23:02 22:52 10/26/2019 22:52 Discharged to Home. Impression: Dehydration; Edema, unspecified. jb4 Condition is Stable. Forms are Medication Reconciliation Form, Thank You Letter, Antibiotic Education, Prescription Opioid Use. Follow up: Private Physician; When: Tomorrow; Reason: Continuance of care. ma2
[2019-10-26 23:10] VITALS: TEMP 98.7
[2019-10-26 23:12] VITALS: O2SAT 97
[2019-10-26 23:13] VITALS: BP 99/50
== END 2019-10-26 23:02 | disposition home or self-care (01) ==
LOC: ER 21:08
DX: E86.0 Dehydration (principal); F17.210 Nicotine dependence, cigarettes, uncomplicated; Z88.8 Allergy status to other drugs, medicaments and biological substances; Z91.018 Allergy to other foods; Z98.82 Breast implant status
CPT/HCPCS: 36415; 80048; 80076; 81003; 82550; 83690; 85025; 99283

== ENCOUNTER 2020-03-26 20:56 | Emergency (ER) | payer SELFPAY ==
[2020-03-26 21:45] LABS: Absolute Lymphocytes (CBC) 1.5 K/uL (0.7-4.9); Basophils % 0.7 % (0-1.3); Hematocrit 37.2 % (36.0-45.0); Lymphocytes % 25.6 % (15.3-44.8); MPV 9.6 fL (7.6-11.3); RBC Red Blood Cell Count 3.55 M/uL (3.86-4.86)
[2020-03-26 21:49] LABS: Protime INR 0.91
[2020-03-26] MEDS ORDERED: ACETAMINOPHEN 325 MG TABLET ONE (21:55)
[2020-03-26] MEDS ORDERED: NA CHLORIDE 0.9% 1,000 ML ONE (21:55)
[2020-03-26] MEDS ORDERED: ONDANSETRON 4 MG/2 ML VIAL ONE (21:55)
[2020-03-26 21:56] LABS: ALT/SGPT 22 U/L (12-78); AST/SGOT 24 U/L (15-37); Albumin 3.4 g/dL (3.4-5.0); Alkaline Phosphatase 98 U/L (45-117); BUN Blood Urea Nitrogen 13 mg/dL (7-18); Bicarbonate 24 mmol/L (21-32); Bilirubin Direct 0.1 mg/dL (0-0.2); Bilirubin Total 0.3 mg/dL (0.2-1.0); Glucose Level 110 mg/dL (74-106); Potassium 3.6 mmol/L (3.5-5.1); Protein, Total 6.6 g/dL (6.4-8.2); Sodium Level 144 mmol/L (136-145)
--- NOTE | 2020-03-26 23:11 | ER ---
Nurse's Notes [facility] Name: Yolie Hu Age: 44 yrs Sex: Female : 1975 Arrival Date: 03/26/2020 Time: 21:03 Bed 20 Private MD: Mohit Wheatley Diagnosis: Epilepsy and recurrent seizures Presentation: 03/26 21:00 Chief complaint: EMS states: she had a witness seizure lasted for 2-3 minutes. hit the rr5 back of her head went to post ictal then we arrived AO x4. she complaints now of head ache and nausea, zofran IV given. 21:00 Coronavirus screen: Client denies travel out of the [place] in the last 14 days. At this rr5 time, the client does not indicate any symptoms associated with coronavirus-19. Ebola Screen: Patient negative for fever greater than or equal to 101.5 degrees Fahrenheit, and additional compatible Ebola Virus Disease symptoms Patient denies exposure to infectious person. Patient denies travel to an Ebola-affected area in the 21 days before illness onset. Initial Sepsis Screen: Does the patient meet any 2 criteria? No. Patient's initial sepsis screen is negative. Does the patient have a suspected source of infection? No. Patient's initial sepsis screen is negative. Risk Assessment: Do you want to hurt yourself or someone else? Patient reports no desire to harm self or others. Onset of symptoms was March 26, 2020. Care prior to arrival: Medication(s) given: zofran 4 mg. 21:00 Method Of Arrival: EMS: [facility] rr5 21:00 Acuity: CANDIDA 2 rr5 Triage Assessment: 21:00 General: Appears in no apparent distress. uncomfortable, Behavior is calm, cooperative, rr5 appropriate for age. 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 - Social history:: Smoking status: Patient reports the use of cigarette tobacco products, smokes one pack cigarettes per day. Patient uses alcohol, on a daily basis. street drugs, marijuana. Screenin:15 Abuse screen: Denies threats or abuse. Denies injuries from another. Nutritional rr5 screening: No deficits noted. Tuberculosis screening: No symptoms or risk factors identified. Fall Risk Fall in past 12 months (25 points). Secondary diagnosis (15 points) seizures, IV access (20 points). Gait- Normal/Bed Rest/Wheelchair (0 pts) Mental Status- Oriented to own ability (0 pts). Total Metz Fall Scale indicates High Risk Score (45 or more points). Fall prevention measures have been instituted. Side Rails Up X 2 Frequent Obs/Assessments Occuring As available patient and family educated on Fall Prevention Program and Strategies. Assessment: 21:00 General: Appears in no apparent distress. uncomfortable, Behavior is calm, cooperative, rr5 appropriate for age. 21:00 Pain: Complains of pain in right side of the head and jaw Pain currently is 9 out of 10 rr5 on a pain scale. Quality of pain is described as aching, Pain began suddenly, Is intermittent. Neuro: Level of Consciousness is awake, alert, obeys commands, Oriented to person, place, time, situation, Appropriate for age. Cardiovascular: Capillary refill < 3 seconds Patient's skin is warm and dry. Respiratory: Airway is patent Respiratory effort is even, unlabored, Respiratory pattern is regular, symmetrical. GI: Reports nausea. GI: No signs and/or symptoms were reported involving the gastrointestinal system. : No signs and/or symptoms were reported regarding the genitourinary system. EENT: No signs and/or symptoms were reported regarding the EENT system. Derm: Skin is intact, is healthy with good turgor, Skin temperature is warm. Musculoskeletal: Capillary refill < 3 seconds. 21:30 Reassessment: keppra 1500 mg taken by patient medication as her evening dose. rr5 21:30 Reassessment: Patient appears in no apparent distress at this time. no active seizure rr5 noted. 22:00 Reassessment: Patient appears in no apparent distress at this time. Patient is alert, rr5 oriented x 3, equal unlabored respirations, skin warm/dry/pink. eyes closed breathing spontaneously at room air. 23:25 Reassessment: Patient appears in no apparent distress at this time. Patient is alert, rr5 oriented x 3, equal unlabored respirations, skin warm/dry/pink. discharge instruction given and explained without complaints made. Vital Signs: 21:00 BP 107 / 57; Pulse 72; Resp 16; Temp 98; Pulse Ox 100% ; Weight 50.8 kg; Height 5 ft. 0 rr5 in. (152.40 cm); Pain 9/10; 22:29 BP 114 / 68; Pulse 73; Resp 19; Pulse Ox 98% ; rr5 23:00 BP 121 / 70; Pulse 70; Resp 16; Pulse Ox 99% ; rr5 21:00 Body Mass Index 21.87 (50.80 kg, 152.40 cm) rr5 Evans Coma Score: 21:00 Eye Response: spontaneous(4). Verbal Response: oriented(5). Motor Response: obeys rr5 commands(6). Total: 15. 21:35 Eye Response: spontaneous(4). Verbal Response: oriented(5). Motor Response: obeys cp commands(6). Total: 15. ED Course: 21:03 Patient arrived in ED. am2 21:03 Mohit Wheatley MD is Private Physician. am2 21:04 Nahum Mina RN is Primary Nurse. rr5 21:04 Quirino Michelle PA is PHCP. cp 21:04 Matthew Tinoco MD is Attending Physician. cp 21:05 Arm band placed on right wrist. rr5 21:07 Triage completed. rr5 21:15 Maintain EMS IV. Dressing intact. Good blood return noted. Site clean \\T\\ dry. Gauge \\T\\ rr 5 site: g 20 left AC. 21:15 Patient has correct armband on for positive identification. Placed in gown. Bed in low rr5 position. Call light in reach. Side rails up X2. Seizure precautions initiated. surveillance monitor on. Pulse ox on. NIBP on. 21:30 EKG done, by ED staff, reviewed by Quirino GRECO. rr5 23:09 Yves Holcomb MD is Referral Physician. cp 23:25 No provider procedures requiring assistance completed. IV discontinued, intact, rr5 bleeding controlled, No redness/swelling at site. Pressure dressing applied. Administered Medications: 21:40 Drug: Zofran (Ondansetron) 4 mg Route: IVP; Site: left antecubital; rr5 21:40 Drug: NS 0.9% 1000 ml Route: IV; Rate: 1 bolus; Site: left antecubital; rr5 21:55 Drug: Tylenol 650 mg Route: PO; rr5 22:26 Not Given (Other Intervention Used; patient took her evening dose of keppra 1500mg rr5 tablet): Keppra 1000 mg IV at 500 calculated rate once Outcome: 23:10 Discharge ordered by MD. cp 23:25 Discharged to home via wheelchair. rr5 23:25 Condition: stable 23:25 Discharge instructions given to patient, Instructed on discharge instructions, follow up and referral plans. Demonstrated understanding of instructions, follow-up care. 23:27 Patient left the ED. rr5 Signatures: Quirino Michelle PA PA cp Clarita Price Raymond, RN RN rr5
--- NOTE | 2020-03-26 23:11 | EDPHYS ---
Physician Documentation [facility] Name: Yolie Hu Age: 44 yrs Sex: Female : 1975 Arrival Date: 03/26/2020 Time: 21:03 Bed 20 Private MD: Mohit Wheatley ED Physician Matthew Tinoco HPI: 03/26 21:25 This 44 yrs old Female presents to ER via EMS with complaints of Seizure. cp 21:25 The patient presents with a history of multiple seizures, a total of 4, that lasted cp approximately 2-3 minutes each seizure, the episode(s) was witnessed, by a significant other, girlfriend. Character of seizure(s): Loss of consciousness: the patient experienced loss of consciousness, prolonged, Motor activity: generalized, shaking all over, Incontinence: none. Seizure Hx: Seizure medications: clonazepam, Lamictal, Keppra. Current symptoms: decreased level of consciousness, unable to arouse. 21:25 Patient reports she has been taking prescribed seizure medications but admits to cp drinking alcohol today. Patient reports last seizure was 8 years ago. 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 - Social history:: Smoking status: Patient reports the use of cigarette tobacco products, smokes one pack cigarettes per day. Patient uses alcohol, on a daily basis. street drugs, marijuana. ROS: 21:30 Neuro: Positive for headache, history of seizure, Negative for altered mental status. cp 21:30 Eyes: Negative for injury, pain, redness, and discharge. cp 21:30 Constitutional: Negative for body aches, chills, fever, malaise. 21:30 ENT: Negative for ear pain, difficulty swallowing, difficulty handling secretions. 21:30 Cardiovascular: Negative for chest pain. 21:30 Respiratory: Negative for cough, wheezing. 21:30 Abdomen/GI: Negative for abdominal pain. 21:30 All other systems are negative. Exam: 21:35 Constitutional: The patient appears in no acute distress, alert, awake, cp non-diaphoretic, non-toxic, well developed, well nourished. 21:35 Head/Face: Normocephalic, atraumatic. cp 21:35 Eyes: Periorbital structures: appear normal, Pupils: equal, round, and reactive to light and accomodation, Extraocular movements: intact throughout, Conjunctiva: normal, no exudate, no injection, Sclera: no appreciated abnormality, Lids and lashes: appear normal, bilaterally. 21:35 ENT: External ear(s): are unremarkable, Nose: is normal, Mouth: Lips: moist, Oral mucosa: moist, Posterior pharynx: Airway: no evidence of obstruction, patent. 21:35 Neck: C-spine: vertebral tenderness, is not appreciated, crepitus, is not appreciated, ROM/movement: is normal, is supple, without pain, no range of motions limitations, no nuchal rigidity. 21:35 Chest/axilla: Inspection: normal, Palpation: is normal, no crepitus, no tenderness. 21:35 Cardiovascular: Rate: normal, Rhythm: regular. 21:35 Respiratory: the patient does not display signs of respiratory distress, Respirations: normal, no use of accessory muscles, no retractions, labored breathing, is not present, Breath sounds: are clear throughout, no decreased breath sounds. 21:35 Abdomen/GI: Exam negative for discomfort, distension, guarding, Inspection: abdomen appears normal. 21:35 Neuro: Orientation: to person, place \\T\\ time. Mentation: is normal, Motor: moves all fours, strength is normal. 21:50 ECG was reviewed by the Attending Physician. cp Vital Signs: 21:00 BP 107 / 57; Pulse 72; Resp 16; Temp 98; Pulse Ox 100% ; Weight 50.8 kg; Height 5 ft. 0 rr5 in. (152.40 cm); Pain 9/10; 22:29 BP 114 / 68; Pulse 73; Resp 19; Pulse Ox 98% ; rr5 23:00 BP 121 / 70; Pulse 70; Resp 16; Pulse Ox 99% ; rr5 21:00 Body Mass Index 21.87 (50.80 kg, 152.40 cm) rr5 Gurjit Coma Score: 21:00 Eye Response: spontaneous(4). Verbal Response: oriented(5). Motor Response: obeys rr5 commands(6). Total: 15. 21:35 Eye Response: spontaneous(4). Verbal Response: oriented(5). Motor Response: obeys cp commands(6). Total: 15. MDM: 21:07 Patient medically screened. cp 21:30 Differential diagnosis: drug overdose, cardiac arrhythmia, seizure, TIA. cp 23:10 Data reviewed: vital signs, nurses notes, lab test result(s), EKG, and as a result, I cp will discharge patient. 23:10 Counseling: I had a detailed discussion with the patient and/or guardian regarding: the cp historical points, exam findings, and any diagnostic results supporting the discharge/admit diagnosis, lab results, to return to the emergency department if symptoms worsen or persist or if there are any questions or concerns that arise at home. ED course: VSS. No seizure activity observed or reported while observing patient in ED. Will discharge to home for continued monitoring. 03/26 21:21 Order name: Acetaminophen; Complete Time: 22:21 rr5 03/26 21:21 Order name: Basic Metabolic Panel; Complete Time: 22:21 rr5 03/26 23:08 Interpretation: Normal except: CL 114; GLUC 110; GFR 87; CA 8.1. cp 03/26 21:21 Order name: CBC with Diff; Complete Time: 22:21 rr5 03/26 23:08 Interpretation: Normal except: RBC 3.55; MCV 104.7; MCH 35.3. cp 03/26 21:21 Order name: ETOH Level; Complete Time: 22:21 rr5 03/26 22:22 Interpretation: Reviewed. cp 03/26 21:21 Order name: Hepatic Function; Complete Time: 22:21 rr5 03/26 23:09 Interpretation: Reviewed. cp 03/26 21:21 Order name: PT-INR; Complete Time: 22:21 rr5 03/26 21:21 Order name: Ptt, Activated; Complete Time: 22:21 rr5 03/26 21:21 Order name: Salicylate; Complete Time: 22:21 rr5 03/26 21:43 Order name: Glucose, Ancillary Testing; Complete Time: 22:21 EDMS 03/26 21:21 Order name: EKG; Complete Time: 21:23 rr5 03/26 21:21 Order name: EKG - Nurse/Tech; Complete Time: 21:50 rr5 03/26 21:21 Order name: IV Saline Lock; Complete Time: 21:31 rr5 03/26 21:21 Order name: Labs collected and sent; Complete Time: :31 rr5 EC:50 Rate is 76 beats/min. Rhythm is regular. MD interval is normal. QRS interval is normal. cp QT interval is normal. T waves are Inverted in lead aVR. Interpreted by me. Reviewed by me. Administered Medications: 21:40 Drug: Zofran (Ondansetron) 4 mg Route: IVP; Site: left antecubital; rr5 21:40 Drug: NS 0.9% 1000 ml Route: IV; Rate: 1 bolus; Site: left antecubital; rr5 21:55 Drug: Tylenol 650 mg Route: PO; rr5 22:26 Not Given (Other Intervention Used; patient took her evening dose of keppra 1500mg rr5 tablet): Keppra 1000 mg IV at 500 calculated rate once Disposition: 03/27 05:06 Co-signature as Attending Physician, Matthew Tinoco MD. 7 Disposition: 03/26/20 23:10 Discharged to Home. Impression: Epilepsy and recurrent seizures. - Condition is Stable. - Discharge Instructions: Seizure, Adult. - Medication Reconciliation Form, Thank You Letter, Antibiotic Education, Prescription Opioid Use form. - Follow up: Yves Holcomb MD; When: 2 - 3 days; Reason: Recheck today's complaints. - Problem is an ongoing problem. - Symptoms are resolved. Signatures: Dispatcher [employer] EDMS Quirino Michelle PA PA cp Roque, Raymond, RN RN 5 Matthew Tinoco MD MD [facility] Corrections: (The following items were deleted from the chart) 03/26 23:08 23:08 Normal except: CL 114; GLUC 110; GFR 87. cp cp 23:27 23:10 03/26/2020 23:10 Discharged to Home. Impression: Epilepsy and recurrent seizures. rr5 Condition is Stable. Forms are Medication Reconciliation Form, Thank You Letter, Antibiotic Education, Prescription Opioid Use. Follow up: Yves Holcomb; When: 2 - 3 days; Reason: Recheck today's complaints. Problem is an ongoing problem. Symptoms are resolved. cp
== END 2020-03-26 23:27 | disposition home or self-care (01) ==
LOC: ER 20:56
DX: G40.802 Other epilepsy, not intractable, without status epilepticus (principal); F17.210 Nicotine dependence, cigarettes, uncomplicated; Z88.1 Allergy status to other antibiotic agents; Z88.8 Allergy status to other drugs, medicaments and biological substances; Z91.018 Allergy to other foods; Z98.82 Breast implant status
CPT/HCPCS: 36415; 80048; 80076; 80320; 80329; 82947; 85025; 85610; 85730; 93005; 96374; 99284; J2405; J7030

== ENCOUNTER 2020-03-29 14:29 | Emergency (ER) | payer SELFPAY ==
[2020-03-29] MEDS ORDERED: DIPHENHYDRAMINE 50 MG/ML VIAL ONE (15:50)
[2020-03-29] MEDS ORDERED: ONDANSETRON 4 MG/2 ML VIAL ONE (15:50)
[2020-03-29] MEDS ORDERED: METOCLOPRAMIDE 10 MG/2mL INJ ONE (15:50)
[2020-03-29] MEDS ORDERED: NA CHLORIDE 0.9% 250 ML ONE (15:51)
--- NOTE | 2020-03-29 16:07 | RAD REPORT ---
EXAM DESCRIPTION: CT - Head Brain Wo Cont - 03/29/2020 3:56 pm CLINICAL HISTORY: HEADACHE Headache, drowsiness, seizure COMPARISON: Facial Bones W/ Mpr dated 03/29/2020; HEAD BRAIN W O CONTRAST dated 01/11/2013 TECHNIQUE: All CT scans are performed using dose optimization technique as appropriate and may inclu de automated exposure control or mA/KV adjustment according to patient size. FINDINGS: No intracranial hemorrhage, hydrocephalus or extra-axial fluid collection.No areas of brai n edema or evidence of midline shift. The paranasal sinuses and mastoids are clear. The calvarium is intact. IMPRESSION: No acute intracranial abnormality.
--- NOTE | 2020-03-29 16:11 | RAD REPORT ---
EXAM DESCRIPTION: CT - CTFB CLINICAL HISTORY: HEADACHE Trauma, right eye swelling. COMPARISON: Head Brain Wo Cont dated 03/29/2020 TECHNIQUE: Axial 2 mm thick images of the face were obtained with sagittal and coronal reconstructio n images. All CT scans are performed using dose optimization technique as appropriate and may include automated exposure control or mA/KV adjustment according to patient size. FINDINGS: No acute facial bone fracture is seen.The mandible is intact. The globes and orbital contents are grossly unremarkable.The paranasal sinuses and mastoids are essen tially clear. IMPRESSION: Negative for facial bone fracture.
[2020-03-29 16:32] LABS: Urine Blood NEGATIVE (NEG); Urine Glucose NEGATIVE (NEG); Urine Protein NEGATIVE (NEG)
[2020-03-29] MEDS ORDERED: NA CHLORIDE 0.9% 1,000 ML ONE (16:38)
[2020-03-29] MEDS ORDERED: dexAMETHasone 10 MG/ML VIAL ONE (16:44)
[2020-03-29] MEDS ORDERED: MEPERIDINE HCL 50 MG/ML ONE (16:55)
--- NOTE | 2020-03-29 17:07 | EDPHYS ---
Physician Documentation [facility] Name: Yolie Hu Age: 44 yrs Sex: Female : 1975 Arrival Date: 03/29/2020 Time: 14:32 Bed 16 Private MD: ED Physician Marquis Yañez HPI: 03/29 15:25 This 44 yrs old Female presents to ER via Ambulatory with complaints of cp Probable Seizure, Headache, Blurred Vision. 15:25 The patient complains of pain to the right side of head. cp 15:25 The patient describes the headache as aching. Onset: The symptoms/episode cp began/occurred 3 day(s) ago. Associated signs and symptoms: Pertinent positives: right eye blurry vision, Pertinent negatives: altered mental status, fever, neck stiffness, vision loss, vomiting. The patient has been recently seen at the [facility] Emergency Department, last week, 3 days ago after having reported seizure. 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 - Social history:: Smoking status: Patient reports the use of cigarette tobacco products, smokes two packs cigarettes per day. ROS: 15:30 Eyes: Positive for blurry vision, redness, of the right eye, Negative for discharge. cp 15:30 Constitutional: Negative for body aches, chills, fever. cp 15:30 ENT: Negative for ear pain, sore throat, difficulty swallowing, difficulty handling secretions. 15:30 Neck: Negative for pain with movement, pain at rest, stiffness. 15:30 Abdomen/GI: Negative for vomiting. 15:30 Back: Negative for pain at rest, pain with movement. 15:30 Neuro: Positive for headache, Negative for altered mental status, weakness. 15:30 All other systems are negative. Exam: 15:40 Constitutional: The patient appears in no acute distress, alert, awake, non-toxic, well cp developed, well nourished. 15:40 Head/face: Noted is ecchymosis, that is mild, of the right spiritism and right zygomatic cp area, swelling, that is mild, of the right spiritism and right zygomatic area, tenderness, that is mild, of the right spiritism and right zygomatic area. 15:40 Eyes: Pupils: equal, round, and reactive to light and accomodation, Extraocular movements: intact throughout, Conjunctiva: subconjunctival hemorrhage(s), seen in the right eye, lateral aspect of eye, Lids and lashes: appear normal, bilaterally. 15:40 ENT: External ear(s): are unremarkable, Ear canal(s): are normal, clear, TM's: bulging, is not appreciated, bilaterally, dullness, bilaterally, erythema, is not appreciated, bilaterally, Nose: is normal, Mouth: Lips: moist, Oral mucosa: moist, Posterior pharynx: Airway: no evidence of obstruction, patent. 15:40 Neck: C-spine: vertebral tenderness, is not appreciated, crepitus, is not appreciated, ROM/movement: is normal, is supple, without pain, no range of motions limitations. 15:40 Chest/axilla: Inspection: normal, Palpation: is normal, no crepitus, no tenderness. 15:40 Cardiovascular: Rate: normal, Rhythm: regular. 15:40 Respiratory: the patient does not display signs of respiratory distress, Respirations: normal, no use of accessory muscles, no retractions, labored breathing, is not present, Breath sounds: are clear throughout, no decreased breath sounds, no stridor, no wheezing. 15:40 Abdomen/GI: Exam negative for discomfort, distension, guarding, Inspection: abdomen appears normal. Vital Signs: 15:05 BP 96 / 64; Pulse 70; Resp 18; Temp 98.8; Pulse Ox 100% on R/A; Weight 50.8 kg; Height em 5 ft. 0 in. (152.40 cm); Pain 9/10; 16:36 BP 113 / 58; Pulse 50; ll1 17:15 BP 111 / 60; Pulse 55; Resp 16; Pulse Ox 100% ; ll1 15:05 Body Mass Index 21.87 (50.80 kg, 152.40 cm) em [place] Coma Score: 15:10 Eye Response: spontaneous(4). Verbal Response: oriented(5). Motor Response: obeys em commands(6). Total: 15. MDM: 15:16 Patient medically screened. 15:46 Differential diagnosis: intracerebral hemorrhage, migraine, subarachnoid bleed, cp subdural hematoma, tension headache, facial fracture, skull fracture. 17:05 Data reviewed: vital signs, nurses notes, radiologic studies, CT scan. 17:05 Counseling: I had a detailed discussion with the patient and/or guardian regarding: the cp historical points, exam findings, and any diagnostic results supporting the discharge/admit diagnosis, radiology results, to return to the emergency department if symptoms worsen or persist or if there are any questions or concerns that arise at home. Response to treatment: the patient's symptoms have markedly improved after treatment, VSS. Headache improved, will discharge to home for continued monitoring. 17:15 ED course: Review of website of [place] prescription monitoring website shows patient cp received RX for tylenol #4 on 03-11-2020 . 03/29 15:56 Order name: Urine Dipstick--Ancillary (enter results); Complete Time: 16:44 03/29 15:56 Order name: Urine --Ancillary (enter results); Complete Time: 16:44 03/29 15:23 Order name: CT Head Brain wo Cont; Complete Time: 16:14 03/29 16:14 Interpretation: Report reviewed. 03/29 15:23 Order name: CT Facial Bones W/O Con; Complete Time: 16:14 03/29 16:14 Interpretation: Report reviewed. 03/29 15:25 Order name: IV; Complete Time: 16:11 03/29 15:25 Order name: Urine Dipstick-Ancillary (obtain specimen); Complete Time: 16:10 03/29 15:25 Order name: Urine Test (obtain specimen); Complete Time: 16:11 Administered Medications: 16:10 Drug: Reglan 10 mg Route: IVP; Site: right antecubital; ll1 17:36 Follow up: Response: No adverse reaction; RASS: Alert and Calm (0) ll1 16:10 Drug: Benadryl 25 mg Route: IVP; Site: right antecubital; ll1 17:36 Follow up: Response: No adverse reaction; RASS: Alert and Calm (0) ll1 16:11 Drug: Zofran (Ondansetron) 4 mg Route: IVP; Site: right antecubital; 1 17:36 Follow up: Response: No adverse reaction; RASS: Alert and Calm (0) 1 16:29 Not Given (Patient ): fentaNYL (PF) 25 mcg IVP once; RASS on ADMIN: Combtv4, ll1 Very Agttd3, Agttd2, Rstlss1, AlertClm0, Drwsy-1, Lt Sdtn-2, Mod Sdtn-3, Dp Sdtn-4, UnArsble-5 16:36 Drug: NS 0.9% 1000 ml Route: IV; Rate: 1 bolus; Site: right antecubital; 1 17:30 Follow up: Response: No adverse reaction; RASS: Alert and Calm (0); IV Status: ll1 Completed infusion; IV Intake: 1000ml 16:36 Drug: Decadron - Dexamethasone 10 mg Route: IVP; Site: right antecubital; 1 17:35 Follow up: Response: No adverse reaction; RASS: Alert and Calm (0) 1 16:47 Drug: Demerol - Meperidine 12.5 mg Route: IVP; Site: right antecubital; 1 17:35 Follow up: Response: No adverse reaction; Pain is decreased; RASS: Alert and Calm (0) ll1 Disposition: 17:30 Chart complete. cp Disposition: 03/29/20 17:06 Discharged to Home. Impression: Headache, Superficial injury of head, Concussion. - Condition is Stable. - Discharge Instructions: Concussion, Adult, Head Injury, Adult. - Prescriptions for Fiorinal 50- 325-40 mg Oral Capsule - take 1 capsule by ORAL route every 4 hours As needed - not to exceed 6 capsules per day; 20 capsule. Zofran 4 mg Oral Tablet - take 1 tablet by ORAL route every 12 hours As needed; 20 tablet. - Medication Reconciliation Form, Thank You Letter, Antibiotic Education, Prescription Opioid Use form. - Follow up: Yves Holcomb MD; When: 1 - 2 days; Reason: Recheck today's complaints. - Problem is new. - Symptoms have improved. Addendum: 03/31/2020 07:16 Co-signature as Attending Physician, Marquis Yañez MD. r n Signatures: Dispatcher [employer] Rikki Pelayo, RN RN Marquis Noel MD MD rn Page, Corey, PA PA cp Franca Varma RN RN hb Lewis, Lynsay, RN RN ll1 Corrections: (The following items were deleted from the chart) 03/29 17:13 17:06 03/29/2020 17:06 Discharged to Home. Impression: Headache. Condition is Stable. cp Forms are Medication Reconciliation Form, Thank You Letter, Antibiotic Education, Prescription Opioid Use. Follow up: Yves Holcomb; When: 1 - 2 days; Reason: Recheck today's complaints. Problem is new. Symptoms have improved. cp 17:21 17:13 03/29/2020 17:06 Discharged to Home. Impression: Headache; Superficial injury of hb head; Concussion. Condition is Stable. Discharge Instructions: Concussion, Adult, Head Injury, Adult. Prescriptions for Tylenol-Codeine #3 300-30 mg Oral Tablet - take 2 tablets by ORAL route every 6 hours As needed; 15 tablet. and Forms are Medication Reconciliation Form, Thank You Letter, Antibiotic Education, Prescription Opioid Use. Follow up: Yves Holcomb; When: 1 - 2 days; Reason: Recheck today's complaints. Problem is new. Symptoms have improved. cp
--- NOTE | 2020-03-29 17:07 | ER ---
Nurse's Notes [facility] Name: Yolie Hu Age: 44 yrs Sex: Female : 1975 Arrival Date: 03/29/2020 Time: 14:32 Bed 16 Private MD: Diagnosis: Headache;Superficial injury of head;Concussion Presentation: 03/29 15:05 Chief complaint: Patient states: had a seizure on Saturday and was evaluated for sz and em discharged, reports GALE after having the sz, she hit her head and has right eye swelling, also reports blurry vision in the right eye, states they did not do a CT here, denies N/V. Coronavirus screen: Client denies travel out of the [place] in the last 14 days. Ebola Screen: Patient negative for fever greater than or equal to 101.5 degrees Fahrenheit, and additional compatible Ebola Virus Disease symptoms Patient denies exposure to infectious person. Patient denies travel to an Ebola-affected area in the 21 days before illness onset. No symptoms or risks identified at this time. Initial Sepsis Screen: Does the patient meet any 2 criteria? No. Patient's initial sepsis screen is negative. Does the patient have a suspected source of infection? No. Patient's initial sepsis screen is negative. Risk Assessment: Do you want to hurt yourself or someone else?. Onset of symptoms was March 27, 2020. 15:05 Method Of Arrival: Ambulatory em 15:05 Acuity: CANDIDA 3 em Triage Assessment: 17:34 General: Appears uncomfortable, Behavior is calm, cooperative. 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 - Social history:: Smoking status: Patient reports the use of cigarette tobacco products, smokes two packs cigarettes per day. Screenin:12 Abuse screen: Denies threats or abuse. Nutritional screening: No deficits noted. ll1 Tuberculosis screening: No symptoms or risk factors identified. Fall Risk IV access (20 points). Gait- Weak (10 pts.). Total [place] Fall Scale indicates Low Risk Score (25-44 pts). Fall prevention measures have been instituted. Side Rails Up X 2 Frequent Obs/Assesments occuring As available Patient and Family Educated on Fall Prevention Program and strategies. Assessment: 15:50 General: Appears uncomfortable, Behavior is calm, cooperative. Pain: Complains of pain ll1 in head Quality of pain is described as aching, Pain began 2-3 days ago. Neuro: Level of Consciousness is awake, alert, obeys commands, Oriented to person, place, time, situation, Appropriate for age Rn Internal Medicine are equal bilaterally Moves all extremities. Full function Gait is steady, Speech is normal, Facial symmetry appears normal, Reports blurred vision dizziness, headache. Cardiovascular: No deficits noted. Respiratory: No deficits noted. GI: Abdomen is flat, Bowel sounds present X 4 quads. Abd is soft and non tender X 4 quads. Reports nausea. 16:30 Reassessment: Patient and/or family updated on plan of care and expected duration. Pain ll1 level reassessed. Patient is alert, oriented x 3, equal unlabored respirations, skin warm/dry/pink. Patient states symptoms have not improved. Vital Signs: 15:05 BP 96 / 64; Pulse 70; Resp 18; Temp 98.8; Pulse Ox 100% on R/A; Weight 50.8 kg; Height em 5 ft. 0 in. (152.40 cm); Pain 9/10; 16:36 BP 113 / 58; Pulse 50; ll1 17:15 BP 111 / 60; Pulse 55; Resp 16; Pulse Ox 100% ; ll1 15:05 Body Mass Index 21.87 (50.80 kg, 152.40 cm) em [place] Coma Score: 15:10 Eye Response: spontaneous(4). Verbal Response: oriented(5). Motor Response: obeys em commands(6). Total: 15. ED Course: 14:32 Patient arrived in ED. ag5 15:09 Triage completed. em 15:10 Arm band placed on. em 15:13 Florence Quispe RN is Primary Nurse. ll1 15:15 Quirino Michelle PA is PHCP. cp 15:15 Marquis Yañez MD is Attending Physician. cp 15:55 Missed attempt(s): 22 gauge in left antecubital area. Bleeding controlled, band aid ll1 applied, catheter tip intact. 15:56 CT Head Brain wo Cont In Process Unspecified. EDMS 15:56 CT Facial Bones W/O Con In Process Unspecified. EDMS 16:05 Inserted saline lock: 22 gauge in right antecubital area, using aseptic technique. ll1 Blood collected. 16:12 Patient has correct armband on for positive identification. Bed in low position. Call ll1 light in reach. Side rails up X 1. Pulse ox on. NIBP on. 17:06 Yves Holcomb MD is Referral Physician. cp 17:19 No provider procedures requiring assistance completed. IV discontinued, intact, hb bleeding controlled, No redness/swelling at site. 17:34 Seizure precautions initiated. ll1 Administered Medications: 16:10 Drug: Reglan 10 mg Route: IVP; Site: right antecubital; ll1 17:36 Follow up: Response: No adverse reaction; RASS: Alert and Calm (0) ll1 16:10 Drug: Benadryl 25 mg Route: IVP; Site: right antecubital; ll1 17:36 Follow up: Response: No adverse reaction; RASS: Alert and Calm (0) ll1 16:11 Drug: Zofran (Ondansetron) 4 mg Route: IVP; Site: right antecubital; ll1 17:36 Follow up: Response: No adverse reaction; RASS: Alert and Calm (0) ll1 16:29 Not Given (Patient ): fentaNYL (PF) 25 mcg IVP once; RASS on ADMIN: Combtv4, ll1 Very Agttd3, Agttd2, Rstlss1, AlertClm0, Drwsy-1, Lt Sdtn-2, Mod Sdtn-3, Dp Sdtn-4, UnArsble-5 16:36 Drug: NS 0.9% 1000 ml Route: IV; Rate: 1 bolus; Site: right antecubital; ll1 17:30 Follow up: Response: No adverse reaction; RASS: Alert and Calm (0); IV Status: ll1 Completed infusion; IV Intake: 1000ml 16:36 Drug: Decadron - Dexamethasone 10 mg Route: IVP; Site: right antecubital; ll1 17:35 Follow up: Response: No adverse reaction; RASS: Alert and Calm (0) ll1 16:47 Drug: Demerol - Meperidine 12.5 mg Route: IVP; Site: right antecubital; ll1 17:35 Follow up: Response: No adverse reaction; Pain is decreased; RASS: Alert and Calm (0) ll1 Intake: 17:30 IV: 1000ml; Total: 1000ml. ll1 Outcome: 17:06 Discharge ordered by . jaden 17:19 Discharged to home ambulatory, with family. 17:19 Condition: stable 17:19 Discharge instructions given to patient, Instructed on discharge instructions, follow up and referral plans. medication usage, Demonstrated understanding of instructions, follow-up care, medications, Prescriptions given X 2. 17:21 Patient left the ED. Signatures: Dispatcher [employer] Rikki Pelayo RN RN em Page, Corey, PA PA cp Baxter, Heather, RN RN Omar Al ag5 Florence Quispe RN RN 1
[2020-03-29 17:38] VITALS: TEMP 98.8; O2SAT 100
[2020-03-29 17:39] VITALS: BP 113/58
== END 2020-03-29 17:21 | disposition home or self-care (01) ==
LOC: ER 14:29
DX: S06.0X0A Concussion without loss of consciousness, initial encounter (principal); S00.90XA Unspecified superficial injury of unspecified part of head, initial encounter; R56.9 Unspecified convulsions; F17.210 Nicotine dependence, cigarettes, uncomplicated; Z98.82 Breast implant status; Z88.1 Allergy status to other antibiotic agents; Z88.8 Allergy status to other drugs, medicaments and biological substances; Z91.018 Allergy to other foods; Z91.048 Other nonmedicinal substance allergy status
CPT/HCPCS: 70450; 70486; 76377; 81003; 81025; 96361; 96374; 96375; 99284; J1100; J1200; J2175; J2405; J2765; J7030; J7050

== ENCOUNTER → 2023-08-13 | Emergency (ER) | payer OTHER ==
[~2023-08-13] MED LIST: AZITHROMYCIN 250 MG TAB ONE; DIPHENHYDRAMINE 50 MG/ML VIAL ONE; FENTANYL CITR 100 MCG/2 ML ONE; KETOROLAC 30 MG/ML INJ ONE; METHYLPREDNISOLONE 125 MG INJ ONE; NA CHLORIDE 0.9% 1,000 ML ONE; PROMETHAZINE INJ 25 MG/ML AMP ONE
--- NOTE | 2023-08-13 16:31 | RAD REPORT ---
EXAM DESCRIPTION: RAD - Chest Single View - 08/13/2023 4:19 pm CLINICAL HISTORY: Congestion;Cough Chest pain. COMPARISON: <Comparisons> FINDINGS: Portable technique limits examination quality. Interstitial markings are mildly prominent which could indicate a viral infection or bronchitis. No a cute infiltrate present. The heart is normal in size. No displaced fractures.
[2023-08-13 17:24] LABS: Absolute Lymphocytes (CBC) 1.7 K/uL (0.7-4.9); Hematocrit 30.7 % (36.0-45.0); Lymphocytes % 27.5 % (15.3-44.8); MCV 101.5 fL (80-100); MPV 8.3 fL (7.6-11.3); Platelets 282 thou/uL (152-406); RBC Red Blood Cell Count 3.03 M/uL (3.86-4.86)
[2023-08-13 17:34] LABS: Albumin 2.9 g/dL (3.4-5.0); Bilirubin Total 0.3 mg/dL (0.2-1.0); Potassium 3.1 mEq/L (3.5-5.1); Protein, Total 6.4 g/dL (6.4-8.2)
[2023-08-13 17:38] LABS: Protime INR 1.02
[2023-08-13 17:53] LABS: SARS-CoV-2 Antigen Rapid Res Negative (Negative)
--- NOTE | 2023-08-13 19:07 | RAD REPORT ---
EXAM DESCRIPTION: CT - Chest For Pe Angio - 08/13/2023 6:50 pm CLINICAL HISTORY: Chest pain. DYSPNEA COMPARISON: <Comparisons> TECHNIQUE: CT angiogram of the pulmonary arteries was performed with MIP. All CT scans are performed using dose optimization technique as appropriate and may include automated exposure control or mA/KV adjustment according to patient size. FINDINGS: No evidence of pulmonary thromboembolism. No acute aortic finding demonstrated. Mild atelectasis is present in both anterior inferior lung bettencourt. The lungs are otherwise clear. No significant pericardial or pleural fluid. No concerning bony finding. Postsurgical changes about the stomach. IMPRESSION: No evidence of pulmonary thromboembolism. No acute lung findings.
--- NOTE | 2023-08-13 21:33 | EDPHYS ---
Physician Documentation [facility] Name: Yolie Hu Age: 48 yrs Sex: Female : 1975 Arrival Date: 08/13/2023 Time: 15:41 Bed 8 Private MD: ED Physician Quirino Stewart HPI: 08/13 21:42 This 48 yrs old Female presents to ER via EMS with complaints of cough, congestion and kb dyspnea. 21:42 Patient is a 48-year-old female who presents for cough, congestion and shortness of kb breath that started during Thanksgiving. States she had the flu at that time and symptoms never resolved. Reports have been getting worse over the last week. Was seen by her family member, who is a PA, and was given a shot of Rocephin and shot of steroids yesterday. States she felt better yesterday but felt bad again today. Denies fever. . Historical: - Allergies: 15:58 AVOCADO (LAURUS PERSEA); ph 15:58 Banana; ph 15:58 Iodine; ph 15:58 Macrobid; ph 15:58 Nitrofurantoin; ph - PMHx: 15:58 Asthma; tummy tuck/breast augmentation; back problems; GERD; insomnia; Seizures; ph - Immunization history:: Adult Immunizations unknown. - Social history:: Smoking status: Patient reports the use of cigarette tobacco products, smokes two packs cigarettes per day. ROS: 21:42 Constitutional: Negative for fever, chills, and weight loss, kb 21:42 ENT: Positive for sinus congestion, 21:42 Respiratory: Positive for cough, shortness of breath, 21:42 All other systems are negative, Exam: 21:42 Constitutional: This is a well developed, well nourished patient who is awake, alert, kb and in no acute distress. Head/Face: Normocephalic, atraumatic. ENT: Moist Mucous membranes Chest/axilla: Normal chest wall appearance and motion. Cardiovascular: Regular rate Abdomen/GI: Soft, non-tender. No distention Skin: Warm, dry with normal turgor. Normal color. MS/ Extremity: Pulses equal, no cyanosis. Neurovascular intact. Full, normal range of motion. Neuro: Awake and alert, GCS 15, oriented to person, place, time, and situation. Moves all extremities. Normal gait. 21:42 Respiratory: the patient does not display signs of respiratory distress, Respirations: normal, Breath sounds: wheezing: expiratory bilateral lower lobes, Vital Signs: 15:52 Pulse 113; Resp 18; Temp 98.8; Pulse Ox 98% on R/A; Weight 56.7 kg; Height 5 ft. 0 in. ;ph 15:59 BP 110 / 62; ph 17:35 BP 103 / 62; Pulse 104; Resp 18; Pulse Ox 100% on R/A; ph 18:39 BP 96 / 48; Pulse 113; Resp 18; Pulse Ox 100% on R/A; ph 19:30 BP 112 / 65; Pulse 98; Resp 17; Pulse Ox 99% ; jj7 20:41 BP 110 / 82; Pulse 97; Resp 18; Pulse Ox 100% ; jj7 21:30 BP 115 / 85; Pulse 95; Resp 17 S; Pulse Ox 100% on R/A; ha1 15:52 Body Mass Index 24.41 (56.70 kg, 152.4 cm) ph MDM: 15:52 Patient medically screened. kb 21:43 Differential Diagnosis: Bronchitis Influenza Upper Respiratory Infection Viral Syndrome kb Other covid. Data reviewed: vital signs, nurses notes. Management of patient was discussed with the following: Discussed case with Dr Grant who recommended CT chest. CT negative, WBC normal, pt afebrile with oxygen saturation 100% on room air. Recommended repeat lactate and discharge home. . 21:45 Management of patient was discussed with the following: Discussed case with Dr alexus Reyes when repeat lactate returned. Recommends discharge. Historians other than the Patient: EMS: [facility]. Counseling: I had a detailed discussion with the patient and/or guardian regarding the historical points, exam findings, and any diagnostic results supporting the discharge/admit diagnosis, lab results, radiology results, the need for outpatient follow up, a family practitioner, to return to the emergency department if symptoms worsen or persist or if there are any questions or concerns that arise at home. ED course: No signs of bacterial infection. I suspect COPD, patient is a 2 pack-a-day smoker. Patient has not been diagnosed with COPD in the past. Educated on need for follow-up with PCP and smoking cessation. Patient is ambulatory without distress, 100% oxygen saturation on room air, nontoxic in appearance. Educated on all diagnostic results and plan for outpatient follow-up. Verbal understanding received and patient in agreement with plan.. 08/13 15:52 Order name: Blood Culture Adult (2) kb 08/13 15:52 Order name: CBC with Diff; Complete Time: 17:42 kb 08/13 15:52 Order name: CMP; Complete Time: 17:41 kb 08/13 15:52 Order name: Lactate w/ 2H reflex if indic.; Complete Time: 17:41 kb 08/13 15:52 Order name: Protime (+inr); Complete Time: 17:41 kb 08/13 15:52 Order name: Ptt, Activated; Complete Time: 17:41 kb 08/13 15:53 Order name: Flu; Complete Time: 18:20 kb 08/13 15:53 Order name: SARS-COV-2 Antigen Rapid; Complete Time: 17:54 kb 08/13 21:13 Order name: Lactate Sepsis 2 HR Follow-up; Complete Time: 21:22 EDMS 08/13 15:52 Order name: Chest Single View XRAY; Complete Time: 16:32 kb 08/13 17:45 Order name: CT Chest For PE Angio; Complete Time: 19:10 kb 08/13 15:52 Order name: EKG; Complete Time: 15:53 kb 08/13 15:52 Order name: Accucheck; Complete Time: 17:10 kb 08/13 15:52 Order name: Cardiac monitoring; Complete Time: 17:10 kb 08/13 15:52 Order name: EKG - Nurse/Tech; Complete Time: 17:33 kb 08/13 15:53 Order name: IV Saline Lock - Large Bore; Complete Time: 17:10 kb 08/13 15:53 Order name: Labs collected and sent; Complete Time: 17:10 kb 08/13 15:53 Order name: O2 Per Protocol; Complete Time: 17:10 kb 08/13 15:53 Order name: O2 Sat Monitoring; Complete Time: 17:10 kb 08/13 15:53 Order name: Vital Signs; Complete Time: 17:10 kb 08/13 20:43 Order name: Misc. Order: repeat lactate; Complete Time: 20:45 kb Administered Medications: 17:10 Drug: Ketorolac IVP 15 mg IVP once Route: IVP; Site: right antecubital; ph 18:38 Drug: diphenhydrAMINE IVP 25 mg IVP once Route: IVP; Site: right antecubital; ph 18:38 Drug: MethylPrednisoLONE IVP 125 mg IVP once Route: IVP; Site: right antecubital; ph 18:45 CANCELLED (Duplicate Order): [id number] mg IVP once ph 18:45 Drug: Promethazine IVP 12.5 mg IVP once Route: IVP; Site: right antecubital; ph 19:20 Follow up: Response: No adverse reaction; Marked relief of symptoms ha1 18:46 Drug: NS 0.9% IV 1000 ml IV at 1000 ml once Route: IV; Rate: 1000 ml; Site: right ph antecubital; 20:20 Drug: fentaNYL (PF) IVP 25 mcg IVP once Route: IVP; Site: right antecubital; jj7 21:00 Follow up: Response: No adverse reaction; Pain is decreased; RASS: Alert and Calm (0) ha1 21:40 Drug: AZITHromycin PO 500 mg PO once Route: PO; ha1 22:03 Follow up: Response: No adverse reaction ha1 Disposition Summary: 08/13/23 21:32 Discharge Ordered Notes: Location: Home kb Condition: Stable kb Diagnosis - Acute bronchitis, unspecified kb Followup: kb - With: Emergency Department - When: As needed - Reason: Worsening of condition Followup: kb - With: Private Physician - When: 2 - 3 days - Reason: Recheck today's complaints, Continuance of care, Re-evaluation by your physician Discharge Instructions: - Discharge Summary Sheet kb - Acute Bronchitis, Adult, [id number] kb Forms: - Medication Reconciliation Form kb - Thank You Letter kb - Antibiotic Education kb - Prescription Opioid Use kb - Patient Portal Instructions kb - Leadership Thank You Letter kb Prescriptions: - Diflucan 150 mg Oral tablet - take 1 tablet ORAL route one time for 1 day May repeat dose in 3 days if kb symptoms persist; 2 tablet; Refills: 0, Product Selection Permitted - Prednisone 20 mg Oral Tablet - take 1 tablet ORAL route once daily for 5 days; 5 tablet; Refills: 0, Product kb Selection Permitted - Albuterol Sulfate 2.5 mg /3 mL (0.083 %) Inhalation Solution for Nebulization - inhale 1 unit NEBULIZATION route every 8 hours As needed Dispense one box; 1 kb Unspecified; Refills: 0, Product Selection Permitted - Zithromax 500 mg Oral Tablet - take 1 tablet ORAL route once daily for 5 days; 5 tablet; Refills: 0, Product kb Selection Permitted Signatures: Dispatcher [employer] Nemo Benz, XI JIMENES-Sylvie Alanis RN RN ph Janie Duque RN RN ha1 Khurram Mcleod RN RN jj7 Corrections: (The following items were deleted from the chart) 18:45 18:39 diphenhydrAMINE IVP 12.5 mg IVP once ordered. ph ph 18:45 18:39 diphenhydrAMINE IVP 12.5 mg IVP once given. ph ph 18:45 18:45 diphenhydrAMINE IVP 12.5 mg IVP once ordered. ph ph
--- NOTE | 2023-08-13 21:33 | ER ---
Nurse's Notes [facility] Name: Yolie Hu Age: 48 yrs Sex: Female : 1975 Arrival Date: 08/13/2023 Time: 15:41 Bed 8 Private MD: Diagnosis: Acute bronchitis, unspecified Presentation: 08/13 15:52 Chief complaint: Patient states: Flu-like symptoms x approx 1 month, productive cough, ph N/V and subjective fever, took home covid test yesterday that was negative. Coronavirus screen: Vaccine status: Patient reports receiving the 2nd dose of the covid vaccine. Ebola Screen: No symptoms or risks identified at this time. Initial Sepsis Screen: Does the patient meet any 2 criteria? No. Patient's initial sepsis screen is negative. Does the patient have a suspected source of infection? No. Patient's initial sepsis screen is negative. Risk Assessment: Do you want to hurt yourself or someone else? Patient reports no desire to harm self or others. Onset of symptoms was August 13, 2023. 15:52 Method Of Arrival: EMS: [facility] ph 15:52 Acuity: CANDIDA 3 ph Historical: - Allergies: 15:58 AVOCADO (LAURUS PERSEA); ph 15:58 Banana; ph 15:58 Iodine; ph 15:58 Macrobid; ph 15:58 Nitrofurantoin; ph - PMHx: 15:58 Asthma; tummy tuck/breast augmentation; back problems; GERD; insomnia; Seizures; ph - Immunization history:: Adult Immunizations unknown. - Social history:: Smoking status: Patient reports the use of cigarette tobacco products, smokes two packs cigarettes per day. Screenin:33 [facility] ED Fall Risk Assessment (Adult) History of falling in the last 3 months, ph including since admission No falls in past 3 months (0 pts) Score/Fall Risk Level 0 - 2 = Low Risk Oriented to surroundings, Maintained a safe environment, Provided non-skid footwear, Hourly rounding (assess needs \T\ fall precautionary measures) done. Abuse screen: Denies threats or abuse. Denies injuries from another. Nutritional screening: No deficits noted. Tuberculosis screening: No symptoms or risk factors identified. Assessment: 17:33 General: Appears in no apparent distress. comfortable, slender, well groomed, Behavior ph is calm, cooperative, appropriate for age. Pain: Complains of pain in back. Neuro: Level of Consciousness is awake, alert, obeys commands, Oriented to person, place, time, situation. Cardiovascular: Capillary refill < 3 seconds in bilateral fingers Patient's skin is warm and dry. Respiratory: Airway is patent Respiratory effort is even, unlabored, Respiratory pattern is regular, symmetrical. Respiratory: Reports shortness of breath cough that is productive. GI: Reports nausea. : No signs and/or symptoms were reported regarding the genitourinary system. Derm: Skin is pink, warm \T\ dry. Musculoskeletal: Circulation, motion, and sensation intact. Range of motion: limited in all extremities. 19:30 General: Appears uncomfortable, Behavior is calm, cooperative. Pain: Complains of pain ha1 in back Pain does not radiate. Pain currently is 8 out of 10 on a pain scale. Quality of pain is described as throbbing. Neuro: Level of Consciousness is awake, alert, obeys commands, Oriented to person, place, time, situation. Cardiovascular: Capillary refill < 3 seconds Patient's skin is warm and dry. Respiratory: Airway is patent Respiratory effort is even, unlabored, Respiratory pattern is regular, symmetrical. Derm: Skin is pink, warm \T\ dry. 20:30 Reassessment: Patient and/or family updated on plan of care and expected duration. Pain ha1 level reassessed. Patient is alert, oriented x 3, equal unlabored respirations, skin warm/dry/pink. 21:30 Reassessment: Patient and/or family updated on plan of care and expected duration. Pain ha1 level reassessed. Patient is alert, oriented x 3, equal unlabored respirations, skin warm/dry/pink. Patient states feeling better. Patient states symptoms have improved. 21:50 Reassessment: NOTIFIED CARE PROVIDER Kemal OF REPEAT RESULTS OF LACTATE. ha1 Vital Signs: 15:52 Pulse 113; Resp 18; Temp 98.8; Pulse Ox 98% on R/A; Weight 56.7 kg; Height 5 ft. 0 in. ;ph 15:59 BP 110 / 62; ph 17:35 BP 103 / 62; Pulse 104; Resp 18; Pulse Ox 100% on R/A; ph 18:39 BP 96 / 48; Pulse 113; Resp 18; Pulse Ox 100% on R/A; ph 19:30 BP 112 / 65; Pulse 98; Resp 17; Pulse Ox 99% ; jj7 20:41 BP 110 / 82; Pulse 97; Resp 18; Pulse Ox 100% ; jj7 21:30 BP 115 / 85; Pulse 95; Resp 17 S; Pulse Ox 100% on R/A; ha1 15:52 Body Mass Index 24.41 (56.70 kg, 152.4 cm) ph ED Course: 15:49 Patient arrived in ED. bd 15:52 Nemo Sommer FNP-C is PHCP. kb 15:52 Quirino Stewart MD is Attending Physician. kb 15:52 Sylvie Rodriguez RN is Primary Nurse. ph 15:58 Triage completed. ph 15:59 Arm band placed on Patient placed in an exam room, on a stretcher. ph 16:21 Chest Single View XRAY In Process Unspecified. EDMS 17:34 Patient has correct armband on for positive identification. Bed in low position. Call ph light in reach. Side rails up X 1. Pulse ox on. NIBP on. Door closed. Noise minimized. Warm blanket given. Pillow given. PO fluids given. 17:35 Inserted saline lock: 22 gauge in right antecubital area, using aseptic technique. ph Blood collected. 17:35 No provider procedures requiring assistance completed. ph 18:52 CT Chest For PE Angio In Process Unspecified. EDMS 22:02 Provided Education on: FOLLOWING UP WITH PCP. ha1 22:02 IV discontinued, intact, bleeding controlled, No redness/swelling at site. Pressure ha1 dressing applied. Administered Medications: 17:10 Drug: Ketorolac IVP 15 mg IVP once Route: IVP; Site: right antecubital; ph 18:38 Drug: diphenhydrAMINE IVP 25 mg IVP once Route: IVP; Site: right antecubital; ph 18:38 Drug: MethylPrednisoLONE IVP 125 mg IVP once Route: IVP; Site: right antecubital; ph 18:45 CANCELLED (Duplicate Order): [id number] mg IVP once ph 18:45 Drug: Promethazine IVP 12.5 mg IVP once Route: IVP; Site: right antecubital; ph 19:20 Follow up: Response: No adverse reaction; Marked relief of symptoms ha1 18:46 Drug: NS 0.9% IV 1000 ml IV at 1000 ml once Route: IV; Rate: 1000 ml; Site: right ph antecubital; 20:20 Drug: fentaNYL (PF) IVP 25 mcg IVP once Route: IVP; Site: right antecubital; jj7 21:00 Follow up: Response: No adverse reaction; Pain is decreased; RASS: Alert and Calm (0) ha1 21:40 Drug: AZITHromycin PO 500 mg PO once Route: PO; ha1 22:03 Follow up: Response: No adverse reaction ha1 Medication: 17:34 VIS not applicable for this client. ph Outcome: 21:32 Discharge ordered by . alexus 22:01 Discharged to home ambulatory, with family, ha1 22:01 Condition: stable 22:01 Discharge instructions given to patient, family, Instructed on discharge instructions, follow up and referral plans. medication usage, Demonstrated understanding of instructions, follow-up care, medications, Prescriptions given X 4, 22:02 Patient left the ED. ha1 Signatures: Dispatcher [employer] EDMS Nemo Sommer, FEDERAL LAW CLERK-C FEDERAL LAW CLERK-CkNieves Sanchez Patricia RN RN Janie Duque RN RN 1 Khurram Mcleod RN RN jj7 Corrections: (The following items were deleted from the chart) 18:45 18:39 diphenhydrAMINE IVP 12.5 mg IVP in right antecubital ph ph 22:00 21:30 Reassessment: Patient and/or family updated on plan of care and expected ha1 duration. Pain level reassessed. Patient is alert, oriented x 3, equal unlabored respirations, skin warm/dry/pink. ha1
--- NOTE | 2023-08-14 16:41 | EKG ---
Test Date: 2023-08-13 Test Time: 17:20:55 Scrip Clerk: PH MEASUREMENT RESULTS: Intervals: Rate: 106 [place]: 166 QRSD: 80 QT: 334 QTc: 443 [place]: P: 52 [place]: 166 QRS: 72 T: 50 INTERPRETIVE STATEMENTS: Sinus tachycardia Otherwise normal ECG Compared to ECG 03/26/2020 21:39:24 Sinus rhythm no longer present Atrial premature complex(es) no longer present Electronically Signed On 08-14-23 16:40:41 RN ELIGIBILITY by Aakash Mckee
== END ==
LOC: ER 15:41
DX: J20.9 Acute bronchitis, unspecified (principal); F17.210 Nicotine dependence, cigarettes, uncomplicated; Z11.52 Encounter for screening for COVID-19; Z98.82 Breast implant status; Z88.1 Allergy status to other antibiotic agents; Z88.8 Allergy status to other drugs, medicaments and biological substances; Z91.018 Allergy to other foods; Z91.048 Other nonmedicinal substance allergy status
CPT/HCPCS: 87040 ×2; 85025; 36415; 85610; 83605 ×2; 85730; 80053; 87804 ×2; 71275; 71045; 87811; Q9967; J2550; J1200; J3010; J2930; J7030; 93005

== ENCOUNTER → 2023-09-17 | Emergency (ER) | payer OTHER ==
[~2023-09-17] MED LIST changes: -AZITHROMYCIN 250 MG TAB ONE; +DICYCLOMINE HCL 10 MG CAP ONE; -DIPHENHYDRAMINE 50 MG/ML VIAL ONE; -FENTANYL CITR 100 MCG/2 ML ONE; -KETOROLAC 30 MG/ML INJ ONE; -METHYLPREDNISOLONE 125 MG INJ ONE; +MORPHINE 4 MG/ML SYR ONE; -NA CHLORIDE 0.9% 1,000 ML ONE; +POTASSIUM 25 MEQ EFFERV TAB ONE; +PROMETHAZINE 25 MG TABLET ONE; +levoFLOXacin 250 MG TAB ONE
--- NOTE | 2023-09-17 18:57 | RAD REPORT ---
EXAM DESCRIPTION: RAD - Chest Single View - 09/17/2023 6:43 pm CLINICAL HISTORY: COUGH Chest pain. COMPARISON: Chest Single View dated 08/13/2023; Chest Single View dated 01/20/2019; Chest Pa And Lat (2 Views) dated 11/28/2016; CHEST SINGLE VIEW dated 09/27/2015 FINDINGS: Portable technique limits examination quality. The lungs are grossly clear. The heart is normal in size. No displaced fractures. IMPRESSION: No acute intrathoracic process suspected.
--- NOTE | 2023-09-17 19:15 | RAD REPORT ---
EXAM DESCRIPTION: CT - Abdomen Pelvis Wo Contrast - 09/17/2023 7:06 pm CLINICAL HISTORY: Abdominal pain. ABD PAIN COMPARISON: CT ABDOMEN PELVIS WO CONTRAST dated 05/30/2014 TECHNIQUE: CT imaging of the abdomen and pelvis was performed without contrast. Solid organ, bowel a nd vascular assessment is limited due to lack of IV and oral contrast. All CT scans are performed using dose optimization technique as appropriate and may include automated exposure control or mA/KV adjustment according to patient size. FINDINGS: The lower lung [place] are clear.Postsurgical changes about the stomach. Cholecystectomy cl ips. The liver, spleen, pancreas, adrenal glands are within normal limits for a limited non-contrast exami nation.Small caliceal stones are present bilaterally without hydronephrosis. No bowel obstruction, free air, free fluid or abscess. The hepatic flexure of the colon shows intramu ral fat hypertrophy and thickening. The appendix is normal. The osseous structures are within normal limits. IMPRESSION: Hepatic flexure of the colon demonstrates intramural fat hypertrophy and wall thickening suggesting colitis. Bilateral caliceal nephrolithiasis without hydronephrosis. A limited non-contrast examination was performed as detailed.
[2023-09-17 20:12] LABS: Absolute Eosinophils 0.1 K/uL (0-0.5); Absolute Lymphocytes (CBC) 2.1 K/uL (0.7-4.9); Basophils % 0.2 % (0-1.3); Eosinophils % 2.1 % (0-4.4); Hematocrit 34.2 % (36.0-45.0); Hemoglobin 11.3 g/dL (12.0-15.0); Lymphocytes % 38.7 % (15.3-44.8); MCV 105.4 fL (80-100); MPV 8.6 fL (7.6-11.3); Platelets 296 thou/uL (152-406); RBC Red Blood Cell Count 3.24 M/uL (3.86-4.86)
[2023-09-17 20:16] LABS: Specific Gravity < 1.005 (1.005-1.030); Urine Bilirubin NEGATIVE (Negative); Urine Blood Negative (Negative); Urine Clarity Clear (Clear); Urine Color Colorless (Yellow); Urine Glucose NEGATIVE (Negative); Urine Protein NEGATIVE (Negative); Urine Urobilinogen Normal (Normal); Urine pH 6.5 (5.0-7.0)
[2023-09-17 20:17] LABS: Specific Gravity < 1.005 (1.005-1.030)
[2023-09-17 20:28] LABS: Albumin/Globulin Ratio 0.9 (1.1-1.8); Anion Gap 6.9 mEq/L (5.0-15.0); Bilirubin Total 0.3 mg/dL (0.2-1.0); Globulin 3.5 g/dL (2.3-3.5); Potassium 2.9 mEq/L (3.5-5.1); Protein, Total 6.5 g/dL (6.4-8.2)
[2023-09-17 21:04] LABS: Anisocytosis 1+; Blood Morphology Comment NOTED (NOT SEEN); Macrocytosis SLIGHT; Platelet Estimate ADEQ; White Blood Cell Scan OK (OK)
--- NOTE | 2023-09-17 21:12 | ER ---
Nurse's Notes [facility] Name: Yolie Hu Age: 48 yrs Sex: Female : 1975 Arrival Date: 09/17/2023 Time: 17:40 Bed 7 Private MD: Diagnosis: Infectious gastroenteritis and colitis, unspecified;Acute vomiting, hypokalemia, colitis at hepatic flexure, transverse colitis Presentation: 09/16 17:44 Chief complaint: EMS states: "feeling sick." Pt c/o N/V/RUQ pain, malaise, alcohol ld1 abuse. Coronavirus screen: At this time, the client does not indicate any symptoms associated with coronavirus-19. Ebola Screen: No symptoms or risks identified at this time. Initial Sepsis Screen:. Risk Assessment: Do you want to hurt yourself or someone else? Patient reports no desire to harm self or others. Onset of symptoms was September 17, 2023. Care prior to arrival: Medication(s) given: Normal saline infusion, 1000 mL, Phenergan, 100mg PO zofran 4 mg, IV initiated. 20 GA, in the right antecubital area. 17:44 Acuity: CANDIDA 3 ld1 17:44 Method Of Arrival: EMS: [facility] ld1 18:19 Initial Sepsis Screen: Does the patient meet any 2 criteria? No. Patient's initial ld1 sepsis screen is negative. Does the patient have a suspected source of infection? No. Patient's initial sepsis screen is negative. Triage Assessment: 17:44 General: Appears in no apparent distress. uncomfortable, Behavior is cooperative, ld1 anxious. Pain: Complains of pain in right upper quadrant Pain does not radiate. Pain currently is 5 out of 10 on a pain scale. EENT: No signs and/or symptoms were reported regarding the EENT system. Neuro: Level of Consciousness is awake, alert, obeys commands, Oriented to person, place, time, situation. Cardiovascular: Capillary refill < 3 seconds Patient's skin is warm and dry. Respiratory: Airway is patent Respiratory effort is even, unlabored. GI: Abdomen is round non-distended, Reports upper abdominal pain, nausea, vomiting. : No signs and/or symptoms were reported regarding the genitourinary system. Derm: No signs and/or symptoms reported regarding the dermatologic system. Musculoskeletal: No signs and/or symptoms reported regarding the musculoskeletal system. 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 - Social history:: Smoking status: Patient denies any tobacco usage or history of. Patient uses alcohol, on a daily basis. Patient uses alcohol, on a daily basis. patient/guardian reports recent binge of alcohol consumption. vodka sprite - 6-7 drinks per day. - Family history:: not pertinent. Screenin:29 [facility] ED Fall Risk Assessment (Adult) History of falling in the last 3 months, kd4 including since admission No falls in past 3 months (0 pts) Confusion or Disorientation No (0 pts) Intoxicated or Sedated No (0 pts) Impaired Gait No (0 pts) Mobility Assist Device Used No (0 pt) Altered Elimination No (0 pt) Score/Fall Risk Level 0 - 2 = Low Risk Oriented to surroundings, Maintained a safe environment, Educated pt \\T\\ family on fall prevention, incl call for assistance when getting out of bed, Assessed \\T\\ reinforced patient's understanding of fall precautions. Abuse screen: Denies threats or abuse. Denies injuries from another. Nutritional screening: PATIENT C/O OF VOMITING ON SATURDAY AND UNABLE TO REALLY EAT ANY FOOD.. Tuberculosis screening: No symptoms or risk factors identified. Assessment: 20:00 General: Appears in no apparent distress. well groomed, Behavior is calm, cooperative. kd4 Pain: Complains of pain in RUQ PAIN 9/10 Pain currently is 9 out of 10 on a pain scale. Neuro: Level of Consciousness is awake, alert, obeys commands, Oriented to person, place, time, situation, Facial symmetry appears normal. Cardiovascular: Reports nausea, vomiting, Denies chest pain, Patient's skin is warm and dry. Respiratory: Airway is patent. GI: Abdomen is non-distended, Bowel sounds present X 4 quads. Abd is soft and non tender. Musculoskeletal: Range of motion:. Vital Signs: 18:19 BP 90 / 57; Pulse 80; Resp 18; Temp 97.9(TE); Pulse Ox 100% on R/A; Weight 54.43 kg; ld1 Height 5 ft. 0 in. ; Pain 7/10; 21:18 BP 94 / 61; Pulse 88; Resp 18; Pulse Ox 100% on R/A; kd4 18:19 Body Mass Index 23.44 (54.43 kg, 152.4 cm) ld1 18:19 Pain Scale: Adult ld1 Gurjit Coma Score: 20:29 Eye Response: spontaneous(4). Motor Response: obeys commands(6). Verbal Response: kd4 oriented(5). Total: 15. ED Course: 17:42 Patient arrived in ED. rg4 17:42 Randy Cowart MD is Attending Physician. rt 17:44 Arm band placed on right wrist. ld1 17:46 Triage completed. ld1 18:45 Chest Single View XRAY In Process Unspecified. EDMS 19:08 CT Abd/Pelvis - Without Contrast In Process Unspecified. EDMS 19:36 Henry Argueta, RN is Primary Nurse. kd4 20:05 Initial lab(s) drawn, by sd, sent to lab. Urine collected: clean catch specimen, clear. kd4 Inserted saline lock: 20 gauge in left antecubital area, using aseptic technique. 20:29 Attending Physician role handed off by Randy Cowart MD sp4 20:29 Obinna Reyes MD is Attending Physician. sp4 20:29 Patient has correct armband on for positive identification. Bed in low position. Call kd4 light in reach. Side rails up X2. Pulse ox on. NIBP on. Warm blanket given. 21:10 Luis M Phillips MD is Referral Physician. sp4 21:16 Diet:. Diet: PATIENT TOLERATES PO CHALLENGE.. kd4 21:28 No provider procedures requiring assistance completed. kd4 21:29 IV discontinued, intact, No redness/swelling at site. kd4 21:30 Provided Education on: MED, D/C . kd4 21:33 PO CHALLENGE TOLERATED, PAIN 2/10. Pt visited by kd4 Administered Medications: 20:38 Drug: morphine IVP or IV 4 mg IVP once over 4 mins Route: IVP; Infused Over: 4 mins; tm6 Site: left antecubital; 21:31 Follow up: Response: No adverse reaction kd4 20:38 Drug: Promethazine IVP 12.5 mg IVP once Route: IVP; Site: left antecubital; tm6 21:32 Follow up: Response: No adverse reaction kd4 21:15 Drug: Promethazine PO 25 mg PO once Route: PO; kd4 21:32 Follow up: Response: No adverse reaction kd4 21:15 Drug: Potassium Chloride PO 40 mEq PO once Route: PO; kd4 21:32 Follow up: Response: No adverse reaction kd4 21:15 Drug: Dicyclomine PO 20 mg PO once Route: PO; kd4 21:32 Follow up: Response: No adverse reaction kd4 21:15 Drug: LevOfloxacin PO 500 mg PO once Route: PO; kd4 21:32 Follow up: Response: No adverse reaction kd4 Medication: 20:29 VIS not applicable for this client. kd4 Outcome: 21:11 Discharge ordered by MD. aguirre 21:28 Discharged to home kd4 21:28 Condition: good 21:28 Discharge instructions given to patient, Instructed on discharge instructions, medication usage, Demonstrated understanding of instructions, medications, Prescriptions given X 4, 21:47 Patient left the ED. kd4 Signatures: Dispatcher [employer] Erum Plasencia rg4 Isi Pierce RN RN ld1 Randy Cowart MD MD rt Obinna Reyes MD MD sp4 Evelio Ware RN RN tm6 Henry Argueta RN RN kd4 Corrections: (The following items were deleted from the chart) 17:44 17:43 PMHx: "gallbladder issue"; ld1 ld1
--- NOTE | 2023-09-17 21:12 | EDPHYS ---
Physician Documentation [facility] Name: Yolie Hu Age: 48 yrs Sex: Female : 1975 Arrival Date: 09/17/2023 Time: 17:40 Bed 7 Private MD: ED Physician Obinna Reyes HPI: 09/16 19:57 This 48 yrs old Female presents to ER via EMS with complaints of Abdominal Pain, rt Nausea/Vomiting. 19:57 Patient presents to the ED with about 2 days of right upper quadrant pain, of note, she rt does not have a gallbladder currently. The patient does report alcohol abuse, but has not had alcohol in the past few days. She reports nausea, vomiting. Denies other acute complaints, symptoms are moderate in severity, no other aggravating or elevating factors.. 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 - Social history:: Smoking status: Patient denies any tobacco usage or history of. Patient uses alcohol, on a daily basis. Patient uses alcohol, on a daily basis. patient/guardian reports recent binge of alcohol consumption. vodka sprite - 6-7 drinks per day. - Family history:: not pertinent. ROS: 19:57 Constitutional: Negative for fever, chills, and weight loss, Cardiovascular: Negative rt for chest pain, palpitations, and edema, Respiratory: Negative for shortness of breath, cough, wheezing, and pleuritic chest pain, MS/Extremity: Negative for injury and deformity, Skin: Negative for injury, rash, and discoloration, Neuro: Negative for headache, weakness, numbness, tingling, and seizure, Psych: Negative for depression, anxiety, suicide ideation, homicidal ideation, and hallucinations, 19:57 Abdomen/GI: Positive for abdominal pain, nausea and vomiting, Exam: 19:57 Constitutional: This is a well developed, well nourished patient who is awake, alert, rt and in no acute distress. Head/Face: Normocephalic, atraumatic. Chest/axilla: Normal chest wall appearance and motion. Nontender with no deformity. No lesions are appreciated. Cardiovascular: Regular rate and rhythm with a normal S1 and S2. No gallops, murmurs, or rubs. Normal PMI, no JVD. No pulse deficits. Respiratory: Lungs have equal breath sounds bilaterally, clear to auscultation and percussion. No rales, rhonchi or wheezes noted. No increased work of breathing, no retractions or nasal flaring. Skin: Warm, dry with normal turgor. Normal color with no rashes, no lesions, and no evidence of cellulitis. MS/ Extremity: Pulses equal, no cyanosis. Neurovascular intact. Full, normal range of motion. Neuro: Awake and alert, GCS 15, oriented to person, place, time, and situation. Cranial nerves II-XII grossly intact. Motor strength 5/5 in all extremities. Sensory grossly intact. Cerebellar exam normal. Normal gait. Psych: Awake, alert, with orientation to person, place and time. Behavior, mood, and affect are within normal limits. 19:57 Abdomen/GI: Tenderness to the right upper quadrant without rebound, guarding, distention, Vital Signs: 18:19 BP 90 / 57; Pulse 80; Resp 18; Temp 97.9(TE); Pulse Ox 100% on R/A; Weight 54.43 kg; ld1 Height 5 ft. 0 in. ; Pain 7/10; 21:18 BP 94 / 61; Pulse 88; Resp 18; Pulse Ox 100% on R/A; kd4 18:19 Body Mass Index 23.44 (54.43 kg, 152.4 cm) ld1 18:19 Pain Scale: Adult ld1 [place] Coma Score: 20:29 Eye Response: spontaneous(4). Motor Response: obeys commands(6). Verbal Response: kd4 oriented(5). Total: 15. MDM: 17:53 Patient medically screened. rt 21:05 Differential diagnosis: Nonspecific abd pain, gastritis, pancreatitis, diverticulitis, sp4 viral gastroenteritis, gastroenteritis. Data reviewed: vital signs, nurses notes, old medical records, lab test result(s), radiologic studies, CT scan. Consideration of Admission/Observation Escalation of care including admission/observation considered. ED course: . ED course: And has evidence of acute mild colitis without elevation of WBC. Will discharge home with p.o. Levaquin, Bentyl Phenergan and Diflucan. . ED course: EXAM DESCRIPTION: CT - Abdomen Pelvis Wo Contrast - 09/17/2023 7:06 pm CLINICAL HISTORY: Abdominal pain. ABD PAIN COMPARISON: CTABDOMEN PELVIS WO CONTRAST dated 05/30/2014 TECHNIQUE: CT imaging of the abdomen and pelvis was performed without contrast. Solid organ, bowel and vascular assessment is limited due to lack of IV and oral contrast. All CT scans are performed using dose optimization technique as appropriate and may include automated exposure control or mA/KV adjustment according to patient size. FINDINGS: The lower lung [place] are clear.Postsurgical changes about the stomach. Cholecystectomy clips. The liver, spleen, pancreas, adrenal glands are within normal limits for a limited non-contrast examination.Small caliceal stones are present bilaterally without hydronephrosis. No bowel obstruction, free air, free fluid or abscess. The hepatic flexure of the colon shows intramural fat hypertrophy and thickening. The appendix is normal. The osseous structures are within normal limits. IMPRESSION: Hepatic flexure of the colon demonstrates intramural fat hypertrophy and wall thickening suggesting colitis. Bilateral caliceal nephrolithiasis without hydronephrosis. A limited non-contrast examination was performed as detailed.. 09/16 18:34 Order name: CBC with Diff; Complete Time: 21:05 rt 09/16 18:34 Order name: CMP; Complete Time: 20:45 rt 09/16 18:34 Order name: Lipase; Complete Time: 20:45 rt 09/16 18:34 Order name: Test, Urine; Complete Time: 20:24 rt 09/16 18:34 Order name: Urinalysis w/ reflexes; Complete Time: 20:24 rt 09/16 20:16 Order name: CBC Smear Scan; Complete Time: 21:05 EDMS 09/16 18:34 Order name: CT Abd/Pelvis - Without Contrast; Complete Time: 19:20 rt 09/16 18:34 Order name: Chest Single View XRAY; Complete Time: 19:20 rt 09/16 18:34 Order name: IV Saline Lock; Complete Time: 20:06 rt 09/16 18:34 Order name: Labs collected and sent; Complete Time: 20:05 rt Administered Medications: 20:38 Drug: morphine IVP or IV 4 mg IVP once over 4 mins Route: IVP; Infused Over: 4 mins; tm6 Site: left antecubital; 21:31 Follow up: Response: No adverse reaction kd4 20:38 Drug: Promethazine IVP 12.5 mg IVP once Route: IVP; Site: left antecubital; tm6 21:32 Follow up: Response: No adverse reaction kd4 21:15 Drug: Promethazine PO 25 mg PO once Route: PO; kd4 21:32 Follow up: Response: No adverse reaction kd4 21:15 Drug: Potassium Chloride PO 40 mEq PO once Route: PO; kd4 21:32 Follow up: Response: No adverse reaction kd4 21:15 Drug: Dicyclomine PO 20 mg PO once Route: PO; kd4 21:32 Follow up: Response: No adverse reaction kd4 21:15 Drug: LevOfloxacin PO 500 mg PO once Route: PO; kd4 21:32 Follow up: Response: No adverse reaction kd4 Disposition Summary: 09/17/23 21:11 Discharge Ordered Notes: Clear liquid diet for 24 hours Location: Home sp4 Problem: new sp4 Symptoms: have improved sp4 Condition: Stable sp4 Diagnosis - Infectious gastroenteritis and colitis, unspecified sp4 - Acute vomiting, hypokalemia, colitis at hepatic flexure, transverse colitis sp4 Followup: sp4 - With: Luis M Phillips MD - When: 7 - 10 days - Reason: Recheck today's complaints Discharge Instructions: - Discharge Summary Sheet sp4 - Viral Respiratory Infection sp4 - Colitis sp4 Prescriptions: - Fluconazole 200 mg Oral tablet - take 1 tablet ORAL route once daily; 10 tablet; Refills: 0, Product Selection sp4 Permitted - promethazine 25 mg Oral tablet - take 1 tablet ORAL route every 6 hours As needed PRN nausea; 30 tablet; sp4 Refills: 0, Product Selection Permitted - dicyclomine 20 mg Oral tablet - take 1 tablet ORAL route every 6 hours PRN abdominal pain; 30 tablet; Refills: sp4 0, Product Selection Permitted - levofloxacin 500 mg Oral tablet - take 1 tablet ORAL route once daily for 7 days; 7 tablet; Refills: 0, Product sp4 Selection Permitted Signatures: Dispatcher [employer] EDIsi Anton RN RN ld1 Randy Cowart MD MD rt Obinna Reyes MD MD sp4 Evelio Ware RN RN tm6 Henry Argueta RN RN kd4 Corrections: (The following items were deleted from the chart) 17:44 17:43 PMHx: "gallbladder issue"; ld1 ld1
[2023-09-17 22:23] VITALS: BP 94/61; TEMP 97.9; O2SAT 100
== END ==
LOC: ER 17:40
DX: A09 Infectious gastroenteritis and colitis, unspecified (principal); E87.6 Hypokalemia; K52.89 Other specified noninfective gastroenteritis and colitis; Z98.82 Breast implant status; Z88.1 Allergy status to other antibiotic agents; Z88.8 Allergy status to other drugs, medicaments and biological substances; Z91.018 Allergy to other foods; Z91.048 Other nonmedicinal substance allergy status
CPT/HCPCS: 85025; 36415; 81025; 81003; 83690; 80053; 74176; 71045; J2550; Q0169